=== PATIENT | female | born 1950 | race Caucasian/White ===

== ENCOUNTER 2020-05-01 13:59 | Outpatient (CLI) | payer MEDICARE, SELFPAY ==
--- NOTE | ~2020-05-01 | CT_ITS ---
EXAMINATION:CT lung screening DATE: 05/01/2020 14:24 INDICATION: Personal history of tobacco dependence. Current smoker with 35 pack year history. TECHNIQUE: Computed tomography (CT) of the chest was performed without intravenous contrast. Automate d exposure control and iterative reconstruction technique were employed. The dose-length product (DLP ) was 68.99 mGy-cm. COMPARISON: Chest CT 05/29/2018, 04/20/2012 FINDINGS: There is mild emphysema. There is mild atelectasis bilaterally. There are chronic airspace opacities in posterobasal segment left lower lobe with volume loss. There are also chronic tree-in-bu d opacities in this lung segment. These findings are consistent with scarring and chronic infection. There are scattered nodules in the lungs measuring up to 3 mm. A calcified left lung nodule and calci fied left hilar and mediastinal lymph nodes are consistent with old granulomatous disease. No pleural effusion. There is a 1.5 cm nodule in right thyroid lobe, stable from 04/20/2012, likely not clinica lly significant. The heart size is normal. There are coronary artery calcifications. No pericardial e ffusion. Calcifications in the spleen are consistent with old granulomatous disease. There is dextros coliosis and severe spondylosis of thoracolumbar spine. IMPRESSION: 1. Lung-RADS category 2: Benign appearance or behavior. Continue annual screening with noncontrast lo w-dose chest CT in 12 months. Reviewed, dictated and finalized at location A. MACIST INTERN IMPRESSION: 1. Lung-RADS category 2: Benign appearance or behavior. Continue annual screeni ng with noncontrast low-dose chest CT in 12 months.
== END 2020-05-01 14:00 | disposition home or self-care (01) ==
LOC: ANHIMG 14:01
PROVIDERS: PCP Internal Medicine; Visit Provider Nurse Practitioner Family
DX: Z12.2 Encounter for screening for malignant neoplasm of respiratory organs (principal); Z87.891 Personal history of nicotine dependence
CPT/HCPCS: G0297

== ENCOUNTER 2020-05-11 08:47 | Outpatient (CLI) | payer MEDICARE, SELFPAY ==
[2020-05-11 09:17] LABS: Basophils Percent Auto 0.7 % (0.2-1.2); Eosinophils Absolute Auto 0.2 K/mm3 (0-0.3); Hematocrit 38.6 % (37.0-47.0); Hemoglobin 12.7 g/dL (12.0-15.0); Immature Granulocyte Absolute 0.01 K/mm3 (0.00-0.031); Immature Granulocyte Percent A 0.2 % (0-0.5); Lymphocytes Absolute Auto 1.89 K/mm3 (0.9-3.2); Lymphocytes Percent Auto 34.5 % (18.3-44.2); Mean Corpuscular HGB Conc 32.9 g/dl (32-36); Mean Corpuscular Hemoglobin 30.4 pg (26-34); Mean Corpuscular Volume 92.3 fl (80-100); Mean Platelet Volume 10.2 fl (7.4-10.4); Monocytes Absolute Auto 0.6 K/mm3 (0.1-0.6); Monocytes Percent Auto 10.4 % (2.6-8.5); Neutrophils Absolute Auto 2.8 K/mm3 (1.3-6.7); Neutrophils Percent Auto 50.2 % (45.5-73.1); Platelet Count Result 272 k/mm3 (150-375); Red Blood Count 4.18 M/mm3 (4.2-5.4); Red Cell Distribution Width 13.1 % (11.5-14.5); White Blood Count 5.5 K/mm3 (4.5-10.0)
[2020-05-11 09:28] LABS: Anion Gap 3 mmol/L (8-16); Blood Urea Nitrogen 12 mg/dL (7-17); Carbon Dioxide 31 mmol/L (22-30); Chloride 106 mmol/L (98-107); Estimated Glomerular Filt Rate > 60; Glucose 102 mg/dL (65-105); Sodium 140 mmol/L (137-145)
[2020-05-11 09:59] LABS: Thyroid Stimulating Hormone 0.478 uIU/mL (0.465-4.680)
== END 2020-05-11 08:48 | disposition home or self-care (01) ==
PROVIDERS: PCP Internal Medicine; Visit Provider Internal Medicine
DX: Z01.810 Encounter for preprocedural cardiovascular examination (principal); J30.2 Other seasonal allergic rhinitis; R68.89 Other general symptoms and signs
CPT/HCPCS: 36415; 80048; 84443; 85025

== ENCOUNTER 2020-11-07 09:53 | Outpatient (CLI) | payer MEDICARE, SELFPAY ==
[2020-11-07 10:34] LABS: Alanine Aminotransferase 19 U/L (4-35); Albumin Level 4.1 g/dL (3.5-5.1); Alkaline Phosphatase 103 U/L (38-126); Aspartate Amino Transferase 30 U/L (14-36); Bilirubin,Total 0.2 mg/dL (0.2-1.3); Cholesterol 176 mg/dL (0-200); HDL Direct 70 mg/dL; Triglycerides 69 mg/dL (<150)
[2020-11-07 10:45] LABS: LDL Cholesterol Direct 80 mg/dL
== END 2020-11-07 09:54 | disposition home or self-care (01) ==
PROVIDERS: PCP Internal Medicine; Visit Provider Internal Medicine
DX: E78.5 Hyperlipidemia, unspecified (principal); Z79.899 Other long term (current) drug therapy
CPT/HCPCS: 36415; 80061; 80076

== ENCOUNTER 2020-11-29 21:01 | Emergency (ER) | payer MEDICARE, SELFPAY ==
--- NOTE | ~2020-11-29 | XR_ITS ---
XR finger 2nd RT min 2V DATE: 11/29/2020 21:29 INDICATION: Pain and swelling of metacarpophalangeal joint. No injury. TECHNIQUE: 3 views COMPARISON: None FINDINGS: There is prominent osteoarthritic change at the interphalangeal joints, most severe at the distal interphalangeal joint. 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 Prominent osteoarthritic change at the triscaphe and first carpometacarpal joints. No fracture or dislocation, periosteal reaction or bone destruction is evident. 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
[2020-11-29 21:15] VITALS: BP 134/51; PULSE 79; RESP 18; TEMP 36.8; O2SAT 98
--- NOTE | 2020-11-29 22:31 | ED.UPPEXIN ---
HPI - Extremity Injury (Upper) General Chief Complaint: Extremity Injury, Upper Stated Complaint: hand pain Time Seen by Provider: 11/29/20 22:03 Source: patient and RN notes reviewed Mode of arrival: ambulatory Limitations: no limitations History of Present Illness HPI narrative: This is a 70 year old female right hand dominant who presents for evaluation right hand pain. She noticed this morning she had pain at swelling to her right index finger. She has some pain with movement. She took 2 ibuprofen a few hours ago. She denies any injury. She reports history of osteoarthritis to her hands but she has never been diagnosed with gout. She denies fever or chills. Related Data Home Medications Medication Instructions Recorded Confirmed multivitamin 1 tablet PO DAILY 06/16/19 11/09/20 omega 1-lct-dfp-fish oil 500 mg 1 cap PO DAILY 06/16/19 11/09/20 (200mg-300mg)-1,000 mg capsule Allergies Allergy/AdvReac Type Severity Reaction Status Date / Time erythromycin base Allergy Severe Hives / Verified 05/08/20 09:45 Red Face tramadol Allergy Severe Hives Verified 11/09/20 10:02 tetracycline Allergy Intermediate Hives Verified 11/09/20 10:02 latex Allergy Mild rash Verified 11/09/20 10:02 Review of Systems Review of Systems: All systems reviewed & are unremarkable except as noted in HPI and below Constitutional: Constitutional: Denies chills and Denies fever(s) Neurologic: Denies focal weakness, Denies numbness and Denies weakness PMFSH Past Medical History Medical History Moderate asthma without complication Family History Family History Mother Family history of osteoporosis Depression Family history of migraine headaches Family history of osteoarthritis Cerebrovascular accident Family history of cardiac disorder Patient's mother is Sibling Family history of osteoporosis Family history of dementia Depression Family history of migraine headaches Family history of osteoarthritis Family history of heart disease in male family member before age 55, Onset Age: 34 Patient's brother is Family history of cardiovascular disease Acute myocardial infarction Family history of Parkinson's disease Father Acute myocardial infarction Other Family history of multiple sclerosis Social History Social History Smoking packs per day: 1 Smoking cigarettes per day: 20.0 Years smoked: 30 Smoking pack-years: 30.00 Smoking status: Former smoker Smoking end date: 06/30/04 Alcohol intake: current Gender identity (if verbalized by the patient): Female Exam Const: General: no acute distress and alert Orientation/consciousness: patient oriented x3 Eyes: EOM: EOMs intact bilaterally Resp: Effort & Inspection: normal respiratory effort Cardio: Other: bilateral radial pulses Neuro: General: patient oriented x3 and moves all extremities Extrem: Other: right hand with swelling at 2nd MCP joint, mild decrease flexion at MCP and PIP joint, no joint erythema Psych: Mental Status: mental status grossly normal Affect: normal affect Course Reevaluation(s) Reevaluation #1: I have discussed with patient that her symptoms are likely due to psuedogout. I discussed discharge plan and treatment. Date: 11/29/20 Time: 23:52 Vital Signs Vital signs: Vital Signs Temperature 98.3 F 11/29/20 21:15 Pulse Rate 79 11/29/20 21:15 Respiratory Rate 18 11/29/20 21:15 Blood Pressure 134/51 L 11/29/20 21:15 Pulse Oximetry 98 11/29/20 21:15 Temperature 98.3 F 11/29/20 21:15 Pulse Rate 66 11/30/20 00:07 Respiratory Rate 18 11/30/20 00:07 Blood Pressure 131/60 11/30/20 00:07 Pulse Oximetry 98 11/30/20 00:07 MDM - Extremity Injury (Upper) Imaging Data Radiolog
[2020-11-29] MEDS: INDOMETHACIN 25 MG CAPSULE 50 MG PO (23:06)
[2020-11-29] MEDS: COLCHICINE 0.6 MG TABLET PO (23:06)
[2020-11-29 23:45] VITALS: BP 124/67; PULSE 66; RESP 18; O2SAT 96
[2020-11-30 00:07] VITALS: BP 131/60; PULSE 66; RESP 18; O2SAT 98
== END 2020-11-30 00:06 | disposition home or self-care (01) ==
PROVIDERS: Emergency Provider General Practice; PCP Internal Medicine
DX: M11.241 Other chondrocalcinosis, right hand (principal); J45.909 Unspecified asthma, uncomplicated; M19.041 Primary osteoarthritis, right hand; Z87.891 Personal history of nicotine dependence
CPT/HCPCS: 73140; 99283; A9270

== ENCOUNTER → 2021-05-01 03:33 | Outpatient (CLI) | payer MEDICARE, SELFPAY ==
[2021-05-01 18:29] LABS: SARS-CoV-2 RNA PCR Negative
== END ==
PROVIDERS: PCP Internal Medicine; Visit Provider Nurse Practitioner
DX: R68.89 Other general symptoms and signs (principal); Z20.822 Contact with and (suspected) exposure to COVID-19
CPT/HCPCS: C9803; U0003; U0005

== ENCOUNTER 2021-05-12 07:15 | Outpatient (CLI) | payer MEDICARE, SELFPAY ==
[2021-05-12 08:38] LABS: Alanine Aminotransferase 24 U/L (4-35); Albumin Level 3.9 g/dL (3.5-5.1); Alkaline Phosphatase 105 U/L (38-126); Anion Gap 5 mmol/L (8-16); Aspartate Amino Transferase 31 U/L (14-36); Bilirubin,Total 0.3 mg/dL (0.2-1.3); Blood Urea Nitrogen 13 mg/dL (7-17); Calcium 9.1 mg/dL (8.4-10.2); Carbon Dioxide 30 mmol/L (22-30); Chloride 105 mmol/L (98-107); Cholesterol 152 mg/dL (0-200); Estimated Glomerular Filt Rate > 60; Glucose 103 mg/dL (65-110); HDL Direct 73 mg/dL; Potassium 4.5 mmol/L (3.4-5.0); Sodium 140 mmol/L (137-145); Triglycerides 51 mg/dL (<150)
[2021-05-12 08:48] LABS: LDL Cholesterol Direct 60 mg/dL
== END 2021-05-12 07:16 | disposition home or self-care (01) ==
PROVIDERS: PCP Internal Medicine; Referring Provider Internal Medicine; Visit Provider Nurse Practitioner
DX: E78.5 Hyperlipidemia, unspecified (principal)
CPT/HCPCS: 36415; 80053; 80061

== ENCOUNTER 2021-10-06 16:01 | Inpatient (IN) | payer MEDICARE, SELFPAY ==
[2021-10-06] VITALS (11 sets, daily range): BP systolic 134–150; BP diastolic 58–59; PULSE 76–97; RESP 12–23; TEMP 36.8–37.4; O2SAT 95–98; BMI 24.2
--- NOTE | ~2021-10-06 | XR_ITS ---
EXAMINATION: XR chest 1V portable Exam Date/Time: 10/06/2021 16:10 CDT CLINICAL HISTORY: SOB, COUGH, COPD, ASTHMA Comparison: None available RESULT: Lines, tubes, and devices: None. Lungs and pleura: Stable retrocardiac mass (previously determined to likely represent chronic infect ion), otherwise clear. Cardiomediastinal silhouette: Stable cardiomediastinal silhouette. Other: No acute osseous or upper abdominal finding. IMPRESSION: No acute cardiopulmonary process. Reviewed, dictated and finalized at location K.
--- NOTE | ~2021-10-06 | CT_ITS ---
EXAMINATION: CTA chest PE protocol DATE: 10/06/2021 17:25 INDICATION: Pulmonary embolism TECHNIQUE: Computed tomography angiography (CTA) of the chest was performed with 100 mL Omnipaque-350 intravenous contrast timed to evaluate the pulmonary arteries. Coronal maximum intensity projection 3D-reconstructions were created by the technologist. The dose-length product (DLP) was 193.26 mGy-cm. Automated exposure control and iterative reconstruction technique were employed. COMPARISON: CT lung screening 05/01/2020. FINDINGS: Study quality: Adequate. Pulmonary arteries: No pulmonary emboli detected. Thoracic aorta: Atherosclerotic calcifications. Lung parenchyma and airways: Bibasilar scar/atelectasis. Stable focus of volume loss and consolidatio n in the left lung base, previously reported as chronic infection. Thoracic inlet, axillae and chest wall: 2.2 cm right thyroid nodule. Mediastinum: Granulomatous calcifications. Heart and pericardium: Normal. Coronary artery calcifications: Mild. Pleura: Unremarkable. Upper abdomen: No significant finding. Bones: No acute osseous finding. IMPRESSION: No CT evidence of pulmonary embolism. 2.2 cm right thyroid nodule, recommend nonemergent, outpatient thyroid ultrasound for further characterization. Reviewed, dictated and finalized at location K. IMPRESSION: No CT evidence of pulmonary embolism. 2.2 cm right thyroid nodule, recommend no nemergent, outpatient thyroid ultrasound for further characterization.
--- NOTE | 2021-10-06 16:06 | ECG_ITS ---
Measurements Intervals [place] Rate: 83 P: 67 TX: 177 QRS: -13 QRSD: 88 T: 62 QT: 360 QTc: 424 Interpretive Statements SINUS RHYTHM COMPARED TO ECG 04/02/2019 09:29:54 NO SIGNIFICANT CHANGES Electronically Signed On 10-07-2021 6:58:05 CDT by Renee Campos M.D.
--- NOTE | 2021-10-06 16:11 | ED.SOB ---
HPI - SOB/Dyspnea General Chief Complaint: Shortness of Breath/Dyspnea Stated Complaint: dyspnea Time Seen by Provider: 10/06/21 16:02 Source: RN notes reviewed History of Present Illness HPI Narrative: Patient presents emergency department from home for shortness of breath. Patient states that she has been short of breath for the past 1 week with a cough states that she does have a history of COPD and is followed by Dr. Lozoya for pulmonary states has been on prednisone for the past 1 week as well as started on Z-Arjun states she has had a cough this been nonproductive she denies any fevers or chills, chest pain abdominal pain nausea vomiting or any other symptoms Related Data Home Medications Medication Instructions Recorded Confirmed multivitamin 1 tablet PO DAILY 06/16/19 05/14/21 omega 4-rgn-efl-fish oil 500 mg 1 cap PO DAILY 06/16/19 05/14/21 (200mg-300mg)-1,000 mg capsule Allergies Allergy/AdvReac Type Severity Reaction Status Date / Time erythromycin base Allergy Severe Hives / Verified 10/06/21 16:10 Red Face tramadol Allergy Severe Hives Verified 10/06/21 16:10 tetracycline Allergy Intermediate Hives Verified 10/06/21 16:10 latex Allergy Mild rash Verified 10/06/21 16:10 Review of Systems Review of Systems: Gen.: Denies fevers or chills ENT: Denies congestion Respiratory: See HPI CV: Denies chest pain or palpitations GI: Denies abdominal pain nausea, emesis or diarrhea Musculoskeletal: Denies back pain or muscle pain Neuro: Denies numbness, tingling, weakness or focal weakness Skin: Denies rash Except as documented, all other systems reviewed and negative [facility] Past Medical History Medical History Arthritis Asthma Chronic obstructive pulmonary disease Erosive osteoarthritis of hands, bilateral H/O: gout Moderate asthma without complication Surgical History Surgical History Delivery by section H/O foot surgery History of carpal tunnel release History of parathyroid surgery Family History Family History Mother Family history of osteoporosis Depression Family history of migraine headaches Family history of osteoarthritis Cerebrovascular accident Family history of cardiac disorder Patient's mother is Sibling Family history of osteoporosis Family history of dementia Depression Family history of migraine headaches Family history of osteoarthritis Family history of heart disease in male family member before age 55, Onset Age: 34 Patient's brother is Family history of cardiovascular disease Acute myocardial infarction Family history of Parkinson's disease Father Acute myocardial infarction Other Family history of multiple sclerosis Social History Social History Smoking packs per day: 0.10 Smoking cigarettes per day: 2.0 Years smoked: 30 Smoking pack-years: 3.00 Smoking status: Current some day smoker Tobacco type: cigarettes Second hand tobacco smoke exposure: Yes Alcohol intake: current Alcohol use details: social Substance use: never Gender identity (if verbalized by the patient): Female Exam Narrative: APPEARANCE: Mild respiratory distress, nontoxic, resting in bed EYES: EOMI HEENT: Normocephalic, atraumatic, OMM RESPIRATORY: Mild respiratory distress wheezing throughout the bilateral lung gauthier with coarse breath sounds in the bases CARDIOVASCULAR: Regular rate and rhythm without murmurs rubs or gallops. ABDOMINAL: Soft, nontender, nondistended, no rebound or guarding MUSCULOSKELETAl: Moves all extremities. No clubbing, cyanosis or edema. NEURO: Awake and alert. Following commands, speech normal, no focal deficits SKIN:: Warm, dry. No rashes lesions or abrasions PSYCHIATRIC: Norm
[2021-10-06 16:18] LABS: Basophils Percent Auto 0.2 % (0.2-1.2); Hematocrit 41.9 % (37.0-47.0); Hemoglobin 13.7 g/dL (12.0-15.0); Immature Granulocyte Absolute 0.04 K/mm3 (0.00-0.031); Immature Granulocyte Percent A 0.3 % (0-0.5); Lymphocytes Absolute Auto 0.93 K/mm3 (0.9-3.2); Lymphocytes Percent Auto 7.6 % (18.3-44.2); Mean Corpuscular HGB Conc 32.7 g/dl (32-36); Mean Corpuscular Hemoglobin 30.8 pg (26-34); Mean Corpuscular Volume 94.2 fl (80-100); Mean Platelet Volume 9.6 fl (7.4-10.4); Monocytes Absolute Auto 0.9 K/mm3 (0.1-0.6); Monocytes Percent Auto 7.5 % (2.6-8.5); Neutrophils Absolute Auto 10.3 K/mm3 (1.3-6.7); Neutrophils Percent Auto 84.4 % (45.5-73.1); Platelet Count Result 364 k/mm3 (150-375); Red Blood Count 4.45 M/mm3 (4.2-5.4); Red Cell Distribution Width 13.2 % (11.5-14.5); White Blood Count 12.2 K/mm3 (4.5-10.0)
[2021-10-06] MEDS: ALBUTEROL SULFATE NEB 2.5 MG/0.5 ML INH 5 MG INHALATION ×3 (16:19→20:06)
[2021-10-06] MEDS: IPRATROPIUM BR 0.02% INH SOLN 0.5 MG/2.5 ML VIAL INHALATION ×3 (16:20→20:06)
[2021-10-06] MEDS: methylPREDNISolone SOD SUCC 125 MG VIAL IV PUSH (16:27)
[2021-10-06 16:28] LABS: Alanine Aminotransferase 32 U/L (4-35); Alkaline Phosphatase 89 U/L (38-126); Anion Gap 8 mmol/L (8-16); Aspartate Amino Transferase 33 U/L (14-36); Bilirubin,Total 0.2 mg/dL (0.2-1.3); Blood Urea Nitrogen 28 mg/dL (7-17); Calcium 8.4 mg/dL (8.4-10.2); Carbon Dioxide 22 mmol/L (22-30); Chloride 107 mmol/L (98-107); Estimated CRCL calculation 60 ml/min; Estimated Glomerular Filt Rate > 60; Glucose 151 mg/dL (65-110); Lactic Acid Reflex 3.7 mmol/L (0.7-2.1); Potassium 4.1 mmol/L (3.4-5.0); Sodium 137 mmol/L (137-145)
[2021-10-06 16:31] LABS: INR 0.9; Partial Thromboplastin Time 25.2 SECONDS (22.3-36.8); Prothrombin Time 12.2 Seconds (11.1-14.7)
[2021-10-06 16:46] LABS: NT Pro B Type Natriuretic Pept 117 pg/mL (5-100); Troponin I < 0.012 ng/mL (0.000-0.034)
[2021-10-06 16:53] LABS: SARS-CoV-2 RNA PCR Negative
--- NOTE | 2021-10-06 19:00 | ADMGEN ---
This patient, Isaura Castillo, was admitted to Medical Room 349-01. Patient/family oriented to hospital policies and general routines including ID bracelet, bed and alarms, visiting hours, pain management, procedures, bathroom and other care routines, personal items, smoking policy, room service/diet, and visiting hours. Information on how to activate the Rapid Response Team has been discussed. Patient/Family are encouraged to report perceived risks to care and to ask questions if they do not understand what they are told or what they should do.
--- NOTE | 2021-10-06 19:12 | PM.IMHP ---
H&P: HPI History of Present Illness Date/Time: Patient was placed observation status for expected length of stay less than 23 hours for management, will plan to re-evaluate tomorrow for improvement. 10/06/21 19:12 Chief Complaint: Cough and shortness of breath Narrative: Ms. Castillo is a 70-year-old female who presented to the emergency room with complaints of cough and shortness of breath x1 week. Patient states that approximately 2 weeks ago her spouse was sick and he receiving antibiotic. Patient states 1 week ago on Friday she started having wheezing and then coughing. Patient states that her [id number] had a leftover Z-Arjun and prednisone and the patient began taking these medications last Friday. Patient states that the prednisone was a 40 mg tablet and she cut in quarters and was taking 10 mg daily. Patient states on Friday her manager assurance's office had called her because she had left a message with them and they are going to call in Augmentin, but patient then told them that she had taken a Z-Arjun and was taking 10 mg of prednisone daily. The office then told the patient to continue with the 10 mg daily and they would continue to check on her. Patient states on Friday she was still extremely tight and wheezing and had a cough typically at night. Patient states on her manager assurance's office called and patient complained of cough and shortness of breath and a prescription for prednisone 40 mg daily was called in for her. Patient states she started that on and then today she decided come to the emergency room for further evaluation because she has been coughing at night and this has been keeping her awake and she is wheezing and her albuterol inhaler and the prednisone have not helped with this at all. Upon evaluation in emergency room patient was noted to have wheezing, but was never hypoxic on room air. Patient received a nebulizer treatment of DuoNeb and 125 mg of IV Solu-Medrol. Patient denies any chest pain, lightheadedness, dizziness, syncopal, or near syncopal episodes. Patient states she has been taking all home medications without any difficulty. Patient states she does have a known history of asthma and dyslipidemia. Patient states she does have a history of smoking approximately half a pack of cigarettes a day for 50 years. Review of Systems Review of Systems: A 12 point review of systems was completed patient all pertinent positive and negative per HPI the remainder are unremarkable. [facility] Past Medical History Medical History Arthritis Asthma Chronic obstructive pulmonary disease Erosive osteoarthritis of hands, bilateral H/O: gout Moderate asthma without complication Surgical History Surgical History Delivery by section H/O foot surgery History of carpal tunnel release History of parathyroid surgery Family History Family History Mother Family history of osteoporosis Depression Family history of migraine headaches Family history of osteoarthritis Cerebrovascular accident Family history of cardiac disorder Patient's mother is Sibling Family history of osteoporosis Family history of dementia Depression Family history of migraine headaches Family history of osteoarthritis Family history of heart disease in male family member before age 55, Onset Age: 34 Patient's brother is Family history of cardiovascular disease Acute myocardial infarction Family history of Parkinson's disease Father Acute myocardial infarction Other Family history of multiple sclerosis Social History Social History Smoking packs per day: 0.10 Smoking cigarettes per day: 2.0 Years smoked: 30 Smoking pack-years: 3.00 Smoking status: Janelle
[2021-10-06 19:16] LABS: Reflex Lactic Acid Yes or No Add Lactic
[2021-10-06 19:50] LABS: Lactic Acid 2.9 mmol/L (0.7-2.1)
[2021-10-06] MEDS: methylPREDNISolone SOD SUCC 125 MG VIAL 60 MG IV PUSH (20:29)
[2021-10-07] VITALS (12 sets, daily range): BP systolic 120–129; BP diastolic 43–59; PULSE 71–88; RESP 17–18; TEMP 36.8–36.9; O2SAT 94–97
[2021-10-07] MEDS: ALBUTEROL SULFATE NEB 2.5 MG/0.5 ML INH 5 MG INHALATION ×4 (01:10→21:33)
[2021-10-07] MEDS: IPRATROPIUM BR 0.02% INH SOLN 0.5 MG/2.5 ML VIAL INHALATION ×4 (01:10→21:33)
[2021-10-07 05:28] LABS: Basophils Percent Auto 0.1 % (0.2-1.2); Hematocrit 41.4 % (37.0-47.0); Hemoglobin 13.3 g/dL (12.0-15.0); Immature Granulocyte Absolute 0.07 K/mm3 (0.00-0.031); Immature Granulocyte Percent A 0.6 % (0-0.5); Lymphocytes Absolute Auto 0.76 K/mm3 (0.9-3.2); Lymphocytes Percent Auto 6.9 % (18.3-44.2); Mean Corpuscular HGB Conc 32.1 g/dl (32-36); Mean Corpuscular Hemoglobin 30.4 pg (26-34); Mean Corpuscular Volume 94.7 fl (80-100); Mean Platelet Volume 9.7 fl (7.4-10.4); Monocytes Absolute Auto 0.6 K/mm3 (0.1-0.6); Neutrophils Absolute Auto 9.7 K/mm3 (1.3-6.7); Neutrophils Percent Auto 87.4 % (45.5-73.1); Platelet Count Result 316 k/mm3 (150-375); Red Blood Count 4.37 M/mm3 (4.2-5.4); Red Cell Distribution Width 13.1 % (11.5-14.5); White Blood Count 11.1 K/mm3 (4.5-10.0)
[2021-10-07 05:40] LABS: Anion Gap 7 mmol/L (8-16); Blood Urea Nitrogen 13 mg/dL (7-17); Calcium 8.7 mg/dL (8.4-10.2); Carbon Dioxide 26 mmol/L (22-30); Chloride 106 mmol/L (98-107); Estimated CRCL calculation 71 ml/min; Estimated Glomerular Filt Rate > 60; Glucose 121 mg/dL (65-110); Potassium 3.7 mmol/L (3.4-5.0); Sodium 139 mmol/L (137-145)
[2021-10-07] MEDS: methylPREDNISolone SOD SUCC 125 MG VIAL 60 MG IV PUSH ×3 (06:29→21:22)
[2021-10-07] MEDS: FLUTICASONE/SALMETEROL 115-21 MCG INHALER 1 PUFF 2 PUFF INHALATION ×2 (07:44→21:42)
--- NOTE | 2021-10-07 07:55 | PM.IMPN ---
Progress Note: A&P Assessment and Plan (1) COPD exacerbation: Code(s): J44.1 - Chronic obstructive pulmonary disease with (acute) exacerbation Status: Acute Assessment and Plan: - DuoNeb treatments every 6 hours - IV Solu-Medrol every 6 hours. - Continue to Monitor oxygen saturations. Currently stable on room air. - white blood cell count decreasing. Likely due to previous dose of steroids prior to coming to emergency room. - As patient is already completed and Z-Arjun as an outpatient will defer any further antibiotics at this time. - Monitor labs and vitals and continue current medication regimen. (2) Tobacco abuse: Code(s): Z72.0 - Tobacco use Status: Acute Assessment and Plan: - Pt. continues to smoke despite multiple bouts of COPD exacerbations. - patient smokes 2 cigarettes daily for the past 3 years. - Nicotine patch offered for control while here. Time Spent With Patient Time with patient: 15 - 25 minutes Subjective Date/time seen: 10/07/21 07:55 This pt. was examined at the bedside after being admitted to the hospital for an acute COPD exacerbation. She continues to feel dyspneic at times, but overall feels that she is starting to feel better. Prior to coming into the hospital, she had taken several days worth of her daughters left over prescription of Prednisone and Azithromycin. She has no new complaints other than continued cough and dyspnea. She has no current CP, N/V/D, Headache, lightheadedness, or near syncope, and states overall she is starting to feel better pain she admits she is not back to her baseline and is agreeable to stay another night. Review of Systems Review of Systems: All systems reviewed & are unremarkable except as noted in HPI and below Exam Narrative: Constitutional: Patient is well-nourished in no acute distress. Patient is alert and oriented x3 HEENT: Moist mucous membranes. No scleral icterus. No lymphadenopathy. Neck: No carotid bruits noted no JVD noted Lungs: Patient's lungs are decreased auscultation bilaterally with inspiratory and expiratory wheezes noted. Patient does have a dry cough noted with inspiration. Cardiovascular: Apical pulse is regular rate and rhythm. S1-S2 noted, no S3 or S4 noted. No gallops, murmurs, or rubs noted. Abdomen: Soft, round, and nontender. No palpable masses. Extremities: No edema. Nontender. Skin: No rashes or lesions. Warm and dry. Skin is intact. Neurological: No focal neurological deficits. Cranial nerves II-XII grossly intact. Psychiatric: Cooperative, appropriate mood, and affect Objective Data Vital Signs Vital Signs: Vital Signs - 24 hr 10/06/21 16:07 10/06/21 16:10 10/06/21 16:21 Temperature 99.3 F Pulse Rate 92 97 80 Respiratory Rate 21 H 23 H 13 Blood Pressure 150/59 H Pulse Oximetry 95 10/06/21 16:47 10/06/21 17:45 10/06/21 18:00 Temperature Pulse Rate 84 76 Respiratory Rate 14 12 Blood Pressure Pulse Oximetry 95 10/06/21 18:21 10/06/21 19:33 10/06/21 20:08 Temperature 98.2 F Pulse Rate 87 89 84 Respiratory Rate 22 H 18 18 Blood Pressure 142/59 H 134/58 L Pulse Oximetry 98 98 10/06/21 20:16 10/06/21 20:18 10/07/21 01:08 Temperature Pulse Rate 88 81 Respiratory Rate 18 18 Blood Pressure Pulse Oximetry 96 10/07/21 01:18 10/07/21 06:14 10/07/21 07:36 Temperature 98.3 F Pulse Rate 86 71 87 Respiratory Rate 18 18 18 Blood Pressure 129/59 L Pulse Oximetry 97 10/07/21 07:43 Temperature Pulse Rate 88 Respiratory Rate 18 Blood Pressure Pulse Oximetry Intake/Output Intake/Output: Intake & Output 10/04/21 10/05/21 10/06/21 10/07/21 23:59 23:59 23:59 23:59 Intake Total 2550 Output Total 4 Balance 2546 Meds/Results Medications: Active Medications Generic Name Dose Route Start Last Admin Trade Name Freq PRN Reason Stop Dose Admin Albuterol 5 mg 10/06/21 20:00 10/07/21 07:36 Albut
[2021-10-07] MEDS: NYSTATIN 100,000 UNITS/ML SUSP 5 ML ORAL.SUSP PO ×3 (08:57→21:22)
[2021-10-07] MEDS: MULTIVITAMINS THERAPEUTIC TAB (*BKC) 1 TABLET PO (08:57)
[2021-10-07] MEDS: ATORVASTATIN 10 MG TABLET PO (08:57)
[2021-10-07] MEDS: ENOXAPARIN 40 MG/0.4 ML SYRINGE SUB-Q (08:58)
[2021-10-07] MEDS: OMEGA 3 POLYUNSAT FATTY ACIDS 1 GM CAP PO (10:43)
[2021-10-07] MEDS: traZODone HCL 50 MG TABLET PO (21:22)
[2021-10-08 02:18] VITALS: PULSE 79; RESP 18
[2021-10-08] MEDS: ALBUTEROL SULFATE NEB 2.5 MG/0.5 ML INH 5 MG INHALATION ×2 (02:22→08:51)
[2021-10-08] MEDS: IPRATROPIUM BR 0.02% INH SOLN 0.5 MG/2.5 ML VIAL INHALATION ×2 (02:22→08:51)
[2021-10-08 02:27] VITALS: PULSE 82; RESP 18
[2021-10-08 05:23] LABS: Basophils Percent Auto 0.1 % (0.2-1.2); Hemoglobin 12.6 g/dL (12.0-15.0); Immature Granulocyte Absolute 0.11 K/mm3 (0.00-0.031); Immature Granulocyte Percent A 0.7 % (0-0.5); Lymphocytes Absolute Auto 0.65 K/mm3 (0.9-3.2); Lymphocytes Percent Auto 4.2 % (18.3-44.2); Mean Corpuscular HGB Conc 33.2 g/dl (32-36); Mean Corpuscular Hemoglobin 30.7 pg (26-34); Mean Corpuscular Volume 92.7 fl (80-100); Monocytes Absolute Auto 0.7 K/mm3 (0.1-0.6); Monocytes Percent Auto 4.7 % (2.6-8.5); Neutrophils Absolute Auto 13.9 K/mm3 (1.3-6.7); Neutrophils Percent Auto 90.3 % (45.5-73.1); Platelet Count Result 311 k/mm3 (150-375); Red Cell Distribution Width 13.2 % (11.5-14.5); White Blood Count 15.4 K/mm3 (4.5-10.0)
[2021-10-08 05:34] LABS: Alanine Aminotransferase 26 U/L (4-35); Albumin Level 3.3 g/dL (3.5-5.1); Alkaline Phosphatase 68 U/L (38-126); Anion Gap 4 mmol/L (8-16); Aspartate Amino Transferase 23 U/L (14-36); Bilirubin,Total 0.1 mg/dL (0.2-1.3); Blood Urea Nitrogen 19 mg/dL (7-17); Calcium 8.3 mg/dL (8.4-10.2); Carbon Dioxide 24 mmol/L (22-30); Chloride 107 mmol/L (98-107); Estimated CRCL calculation 71 ml/min; Estimated Glomerular Filt Rate > 60; Glucose 133 mg/dL (65-110); Magnesium 2.2 mg/dL (1.6-2.3); Sodium 135 mmol/L (137-145)
[2021-10-08] MEDS: methylPREDNISolone SOD SUCC 125 MG VIAL 60 MG IV PUSH (06:22)
[2021-10-08 06:28] VITALS: BP 122/60; PULSE 77; RESP 18; TEMP 36.7; O2SAT 96
[2021-10-08] MEDS: OMEGA 3 POLYUNSAT FATTY ACIDS 1 GM CAP PO (08:44)
[2021-10-08] MEDS: ATORVASTATIN 10 MG TABLET PO (08:44)
[2021-10-08] MEDS: NYSTATIN 100,000 UNITS/ML SUSP 5 ML ORAL.SUSP PO (08:44)
[2021-10-08] MEDS: ENOXAPARIN 40 MG/0.4 ML SYRINGE SUB-Q (08:44)
[2021-10-08] MEDS: MULTIVITAMINS THERAPEUTIC TAB (*BKC) 1 TABLET PO (08:44)
[2021-10-08] MEDS: levoFLOXacin 500 MG TABLET PO (08:44)
[2021-10-08 08:50] VITALS: PULSE 80; RESP 18
[2021-10-08] MEDS: FLUTICASONE/SALMETEROL 115-21 MCG INHALER 1 PUFF 2 PUFF INHALATION (08:51)
[2021-10-08 08:55] VITALS: O2SAT 96
[2021-10-08 08:58] VITALS: PULSE 81; RESP 18
--- NOTE | 2021-10-08 10:22 | PM.DS ---
DS: Admitting Diagnosis Discharge Date 10/08/2021 Admitting Diagnosis COPD exacerbation Thrush Tobacco dependence 2.2 cm right thyroid nodule, recommend nonemergent, outpatient thyroid ultrasound for further characterization. DS: Discharge Diagnosis Discharge Diagnosis (1) COPD exacerbation: Code(s): J44.1 - Chronic obstructive pulmonary disease with (acute) exacerbation Status: Acute Assessment and Plan: - DuoNeb treatments every 6 hours - IV Solu-Medrol every 6 hours. - Continue to Monitor oxygen saturations. Currently stable on room air. - white blood cell count decreasing. Likely due to previous dose of steroids prior to coming to emergency room. - As patient is already completed and Z-Arjun as an outpatient will defer any further antibiotics at this time. - Monitor labs and vitals and continue current medication regimen. (2) Tobacco abuse: Code(s): Z72.0 - Tobacco use Status: Acute Assessment and Plan: - Pt. continues to smoke despite multiple bouts of COPD exacerbations. - patient smokes 2 cigarettes daily for the past 3 years. - Nicotine patch offered for control while here. DS: Summary Hospital Course Reason for hospitalization: COPD exacerbation Hospital Course: Ms. Castillo is a 70-year-old female with a known history of asthma and dyslipidemia. Patient states she does have a history of smoking approximately half a pack of cigarettes a day for 50 years. sHe presented to the emergency room with complaints of cough and shortness of breath x1 week. Patient states that approximately 2 weeks ago her spouse was sick and he receiving antibiotic. Patient states 1 week ago on Friday she started having wheezing and then coughing. Patient states that her [id number] had a leftover Z-Arjun and prednisone and the patient began taking these medications last Friday. Patient states that the prednisone was a 40 mg tablet and she cut in quarters and was taking 10 mg daily. Patient states on Friday her fine grader's office had called her because she had left a message with them and they are going to call in Augmentin, but patient then told them that she had taken a Z-Arjun and was taking 10 mg of prednisone daily. The office then told the patient to continue with the 10 mg daily and they would continue to check on her. Patient states on Friday she was still extremely tight and wheezing and had a cough typically at night. Patient states on her fine grader's office called and patient complained of cough and shortness of breath and a prescription for prednisone 40 mg daily was called in for her. Patient states she started that on and then today she decided come to the emergency room for further evaluation because she has been coughing at night and this has been keeping her awake and she is wheezing and her albuterol inhaler and the prednisone have not helped with this at all. Upon evaluation in emergency room patient was noted to have wheezing, but was never hypoxic on room air. Patient received a nebulizer treatment of DuoNeb and 125 mg of IV Solu-Medrol. Patient denies any chest pain, lightheadedness, dizziness, syncopal, or near syncopal episodes. Patient states she has been taking all home medications without any difficulty. years. During hospitalization the patient was placed on IV Solu-Medrol Q 6 hours, DuoNeb treatments and educated on COPD exacerbation and smoking history. Patient continued to have a leukocytosis during her hospitalization and thrush. She was administered 1 dose of fluconazole and started on antibiotics. Patient felt dyspneic intermittently however she did not require oxygen supplementation on the day of discharge. She will be discharged with continuation of steroids and antibiotics and follow-up with her fine grader within 1 week. Status at Discharge Cognitive/behavioral status at discharge: Alert and oriented Functional status at discharge: independent ambula
[2021-10-08] MEDS: FLUCONAZOLE 150 MG TABLET PO (11:12)
[2021-10-08] MEDS: predniSONE 20 MG TABLET 40 MG PO (11:12)
== END 2021-10-08 11:25 | disposition home or self-care (01) | DRG 192 ==
LOC: ANHED 18:28 → ANH3MED 18:34
PROVIDERS: Nurse Practitioner Adult Health; Admitting Provider Internal Medicine; Emergency Provider Emergency Medicine; PCP Internal Medicine; Visit Provider Nurse Practitioner Family
DX: J44.1 Chronic obstructive pulmonary disease with (acute) exacerbation (principal); E04.1 Nontoxic single thyroid nodule; Z20.822 Contact with and (suspected) exposure to COVID-19; J45.909 Unspecified asthma, uncomplicated; E78.5 Hyperlipidemia, unspecified; B37.9 Candidiasis, unspecified; D72.829 Elevated white blood cell count, unspecified; M15.4 Erosive (osteo)arthritis; F17.210 Nicotine dependence, cigarettes, uncomplicated
CPT/HCPCS: 36415; 71045; 71275; 80048; 80053; 83605; 83735; 83880; 84484; 85025; 85610; 85730; 93005; 94640; 96372; 96374; 96376; 99285; A9270; C9803; G0378; J1650; J2930; J7512; Q9967; U0003; U0005

== ENCOUNTER 2021-10-12 10:44 | Outpatient (CLI) | payer MEDICARE, SELFPAY ==
--- NOTE | ~2021-10-12 | US_ITS ---
EXAMINATION: US thyroid EXAM DATE: 10/12/2021 11:09 INDICATION: E04.1 - Nontoxic single thyroid nodule. TECHNIQUE: Multiple grayscale and Doppler images of the thyroid were obtained (by a technologist who performed the scan) and subsequently reviewed. Individual nodules and recommendations may be reporte d in accordance with TI-RADS system as designated by the 2017 ACR White Paper TI-RADS committee. The re is no prior thyroid study for comparison, but correlation made to multiple prior chest CTs. FINDINGS: There is diffusely heterogeneous thyroid echogenicity with scattered nodules. The right thyroid lobe measures 5.0 x 2.3 x 2.8 cm which is moderately enlarged, the left measuring 3.7 x 1.6 x 1.5 cm, with in normal size limits. Diffusely hypervascular thyroid parenchyma. Largest nodule is in the right thyroid lobe measuring 2.2 x 1.4 x 2.0 cm, solid (2 points), hypoecho ic (2 points), wider than tall, smooth well defined margin, without echogenic foci, category TR4 for this nodule. Correlation is made to prior chest CT reports from 2021, 2019, 2011. Nodule appears to h ave measured about 1.5 cm in 2011, may have demonstrated slow interval growth over 10 years which is most consistent with benign histology. However, no prior ultrasounds for direct comparison and this n odule is large enough to consider ultrasound-guided biopsy under current recommendations. The contiguous smaller right thyroid lobe nodule measuring up to 1.2 cm has echogenic foci along far sides of cystic components, typical appearance for colloid cyst. There is left thyroid lobe category TR 4 nodule measuring 1.1 x 0.9 x 1.1 cm, size indicates one-year follow-up. IMPRESSION: 1. Multinodular goiter. 2. Largest right thyroid lobe nodule could be considered for ultrasound-guided FNA. Reviewed, dictated and finalized at location B.
== END 2021-10-12 10:45 | disposition home or self-care (01) ==
PROVIDERS: PCP Internal Medicine; Visit Provider Internal Medicine
DX: E04.2 Nontoxic multinodular goiter (principal)
CPT/HCPCS: 76536

== ENCOUNTER 2021-10-17 09:00 | Outpatient (CLI) | payer MEDICARE, SELFPAY ==
--- NOTE | ~2021-10-17 | US_ITS ---
EXAMINATION: US FNA w image guidance DATE: 10/17/2021 09:50 INDICATION: Nontoxic multinodular goiter TECHNIQUE: A time-out was performed to verify the patient's name, date of , and procedure to be performed . The procedure and its benefits and risks were discussed with the patient. Risks specifically discus sed included bleeding and infection. The patient understood the risks and agreed to proceed. The neck was prepped and draped in the usual sterile manner. 3 mL 1% lidocaine was used for local anesthesia . 6 passes were made with a 25G needle into the lesion. Appropriate needle location was documented with continuous sonographic guidance. A sterile bandage was applied. There were no immediate compli cations. FINDINGS: Grayscale ultrasound images demonstrate biopsy needles advanced into a 1.8 x 1.6 x 1.3 cm hypoechoic mass with lobular margins in the right thyroid. IMPRESSION: 1. Successful ultrasound-guided fine needle aspiration of a 1.8 cm TI RADS 4 right thyroid nodule. Reviewed, dictated and finalized at location A. IMPRESSION: 1. Successful ultrasound-guided fine needle aspiration of a 1.8 cm TI RADS 4 r ight thyroid nodule.
== END 2021-10-17 09:01 | disposition home or self-care (01) ==
LOC: ANHIMG 09:02
PROVIDERS: PCP Internal Medicine; Visit Provider Internal Medicine
DX: E04.2 Nontoxic multinodular goiter (principal)
CPT/HCPCS: 10005; 88173; 88305

== ENCOUNTER 2021-11-09 08:46 | Outpatient (CLI) | payer MEDICARE, SELFPAY ==
[2021-11-09 09:39] LABS: Alanine Aminotransferase 24 U/L (6-35); Albumin Level 4.3 g/dL (3.5-5.1); Alkaline Phosphatase 89 U/L (38-126); Anion Gap 7 mmol/L (8-16); Aspartate Amino Transferase 30 U/L (14-36); Bilirubin,Total 0.2 mg/dL (0.2-1.3); Blood Urea Nitrogen 10 mg/dL (7-17); Calcium 8.7 mg/dL (8.4-10.2); Carbon Dioxide 25 mmol/L (22-30); Chloride 108 mmol/L (98-107); Cholesterol 198 mg/dL (0-200); Estimated Glomerular Filt Rate > 60; Glucose 81 mg/dL (65-110); HDL Direct 82 mg/dL; Potassium 4.4 mmol/L (3.4-5.0); Sodium 140 mmol/L (137-145); Triglycerides 107 mg/dL (<150); Uric Acid 6.6 mg/dL (2.5-7.5)
[2021-11-09 09:50] LABS: LDL Cholesterol Direct 80 mg/dL
== END 2021-11-09 08:47 | disposition home or self-care (01) ==
PROVIDERS: PCP Internal Medicine; Visit Provider Nurse Practitioner
DX: Z13.6 Encounter for screening for cardiovascular disorders (principal); Z79.899 Other long term (current) drug therapy; Z13.220 Encounter for screening for lipoid disorders; Z87.39 Personal history of other diseases of the musculoskeletal system and connective tissue; M11.249 Other chondrocalcinosis, unspecified hand; Z13.21 Encounter for screening for nutritional disorder
CPT/HCPCS: 36415; 80053; 80061; 82306; 84550

== ENCOUNTER 2022-01-11 08:44 | Outpatient (CLI) | payer MEDICARE, SELFPAY ==
--- NOTE | ~2022-01-11 | DEXA_ITS ---
Bone Density Report Name: JOSE ARMANDO HALE Age: 71 Sex: Female Ethnicity: White Date of : 1950 Indication: postmenopausal; screening for osteoporosis; height loss; prior fracture; asthma or emphysema; Referring Provider: NASH HERNANDEZ Study: Bone densitometry was performed. Exam Date: January 11, 2022 Accession number: [id number] Bone Density: Region BMD T-score Z-score Classification AP Spine(L1, L2) 1.050 0.6 2.6 Normal Femoral Neck (Left) 0.538 -2.8 -1.1 Osteoporosis Total Hip (Left) 0.578 -3.0 -1.5 Osteoporosis Femoral Neck (Right) 0.549 -2.7 -1.0 Osteoporosis Total Hip (Right) 0.613 -2.7 -1.2 Osteoporosis Total Hip Mean 0.596 -2.9 -1.4 Osteoporosis World Health Organization criteria for BMD impression classify patients as: Normal (T-score at or above -1.0), Osteopenia (T-score between -1.0 and -2.5), or Osteoporosis (T-score at or below -2.5). 10-year Fracture Risk: FRAX not reported because: Some T-score for Spine Total or Hip Total or Femoral Neck at or below -2.5 Clinical Information Provided by Patient: Has had a low trauma fracture Has used the following medications: Vitamin D, Calcium Has the following medical conditions: Asthma or Emphysema Patient maximum height was 63 Menopause Age: 44 Drinks caffeinated beverages Onset of menses at age 13 Number of children 2 Impression: The patient has established osteoporosis, based on the Left Total Hip T-score and the existence of a prior fracture. The patient has risk factors, including: previous fracture. Discussion: HIGH RISK OF FRACTURE. BONE DENSITY IS UNDESIRABLY LOW AT ONE OR MORE SKELETAL SITES, CONSISTENT WITH POSTMENOPAUSAL OSTEOPOROSIS. This patient's lowest T-score, in a patient who has previously fractured, meets the World Health Organization's (WHO) criteria for severe osteoporosis. In untreated patients, the risk of osteoporotic fracture increases approximately two-fold for each 1.0 SD decrease in T-score. Low bone density is not the only risk factor for fracture; also consider factors such as patient's age, frailty or poor health, risk of falling, risk of injury, previous osteoporotic fracture, family history of osteoporosis, cigarette smoking, low body weight, etc. Not everyone with low bone mineral density has osteoporosis; osteomalacia and other metabolic bone disorders should also be considered. Patients who have osteoporosis should be evaluated for specific diseases and conditions (secondary causes) that may cause or contribute to bone loss. The [place] Association of Clinical Endocrinologists (AACE) and National Osteoporosis Foundation (NOF) recommend pharmacologic intervention for all postmenopausal women whose T-score is in this range. The patient should follow a healthful lifestyle (good nutrition with adequate calcium
--- NOTE | ~2022-01-11 | MM_ITS ---
EXAMINATION: MM screening [facility] BI w nisha HISTORY: Screening mammogram TECHNIQUE: Craniocaudal and mediolateral oblique 3-D tomosynthesis images were obtained and synthetic 2-D images were generated. CAD analysis was submitted and interpreted. COMPARISON: 06/08/2018, 11/04/2013, 10/08/2010 BREAST PARENCHYMAL COMPOSITION: There are scattered areas of fibroglandular density. FINDINGS: There is no suspicious mass, calcification, or architectural distortion to suggest malignan cy in either breast. There has been no suspicious interval change. IMPRESSION: 1. No mammographic evidence of malignancy. 2. Recommend routine screening mammography in one year. BI-RADS Category 1: Negative Reviewed, dictated and finalized at location A.
== END 2022-01-11 08:45 | disposition home or self-care (01) ==
LOC: ANHIMG 08:44
PROVIDERS: PCP Internal Medicine; Visit Provider Internal Medicine
DX: Z12.31 Encounter for screening mammogram for malignant neoplasm of breast (principal); Z78.0 Asymptomatic menopausal state; M81.0 Age-related osteoporosis without current pathological fracture
CPT/HCPCS: 77063; 77067; 77080

== ENCOUNTER 2022-05-21 08:16 | Outpatient (CLI) | payer MEDICARE, SELFPAY ==
[2022-05-21 09:12] LABS: Alanine Aminotransferase 25 U/L (6-35); Albumin Level 4.1 g/dL (3.5-5.1); Alkaline Phosphatase 61 U/L (38-126); Anion Gap 10 mmol/L (8-16); Aspartate Amino Transferase 27 U/L (14-36); Bilirubin,Total 0.3 mg/dL (0.2-1.3); Blood Urea Nitrogen 17 mg/dL (7-17); Calcium 8.7 mg/dL (8.4-10.2); Carbon Dioxide 26 mmol/L (22-30); Chloride 103 mmol/L (98-107); Cholesterol 198 mg/dL (0-200); Estimated Glomerular Filt Rate > 60; Glucose 99 mg/dL (65-110); HDL Direct 81 mg/dL; Potassium 4.1 mmol/L (3.4-5.0); Sodium 139 mmol/L (137-145); Triglycerides 54 mg/dL (<150); Uric Acid 4.8 mg/dL (2.5-7.5)
[2022-05-21 09:23] LABS: LDL Cholesterol Direct 76 mg/dL
[2022-05-21 09:40] LABS: Thyroid Stimulating Hormone 0.488 uIU/mL (0.465-4.680)
== END 2022-05-21 08:17 | disposition home or self-care (01) ==
PROVIDERS: PCP Internal Medicine; Visit Provider Nurse Practitioner
DX: E78.5 Hyperlipidemia, unspecified (principal); Z87.39 Personal history of other diseases of the musculoskeletal system and connective tissue; E04.2 Nontoxic multinodular goiter; R68.89 Other general symptoms and signs
CPT/HCPCS: 36415; 80053; 80061; 84443; 84550

== ENCOUNTER 2022-11-26 07:18 | Outpatient (CLI) | payer MEDICARE, SELFPAY ==
[2022-11-26 07:49] LABS: Alanine Aminotransferase 23 U/L (6-35); Albumin Level 4.1 g/dL (3.5-5.1); Alkaline Phosphatase 54 U/L (38-126); Anion Gap 6 mmol/L (8-16); Aspartate Amino Transferase 27 U/L (14-36); Bilirubin,Total 0.5 mg/dL (0.2-1.3); Blood Urea Nitrogen 14 mg/dL (7-17); Calcium 8.3 mg/dL (8.4-10.2); Carbon Dioxide 24 mmol/L (22-30); Chloride 106 mmol/L (98-107); Cholesterol 186 mg/dL (0-200); Estimated Glomerular Filt Rate > 60; Glucose 100 mg/dL (65-110); HDL Direct 85 mg/dL; Sodium 136 mmol/L (137-145); Triglycerides 72 mg/dL (<150)
[2022-11-26 08:00] LABS: LDL Cholesterol Direct 79 mg/dL
== END 2022-11-26 07:19 | disposition home or self-care (01) ==
LOC: ANHLAB 07:20
PROVIDERS: PCP Family Medicine; Visit Provider Nurse Practitioner
DX: E78.5 Hyperlipidemia, unspecified (principal); E55.9 Vitamin D deficiency, unspecified
CPT/HCPCS: 36415; 80053; 80061; 82306

== ENCOUNTER 2023-03-12 08:41 | Outpatient (CLI) | payer MEDICARE, SELFPAY ==
--- NOTE | ~2023-03-12 | MM_ITS ---
EXAMINATION: MM screening [facility] BI w nisha HISTORY: Screening mammogram TECHNIQUE: Craniocaudal and mediolateral oblique 3-D tomosynthesis images were obtained and synthetic 2-D images were generated. CAD analysis was submitted and interpreted. COMPARISON: 01/11/2022, 06/08/2018 BREAST PARENCHYMAL COMPOSITION:There are scattered areas of fibroglandular density. FINDINGS: No suspicious mass, calcification, or architectural distortion are identified in either evelin ast to suggest malignancy. There has been no suspicious interval change. IMPRESSION: No mammographic evidence of malignancy. Recommend routine screening mammography in one year. BI-RADS Category 1: Negative Reviewed, dictated and finalized at location .
== END 2023-03-12 08:42 | disposition home or self-care (01) ==
LOC: ANHIMG 08:44
PROVIDERS: PCP Family Medicine; Visit Provider Family Medicine
DX: Z12.31 Encounter for screening mammogram for malignant neoplasm of breast (principal)
CPT/HCPCS: 77063; 77067

== ENCOUNTER 2023-04-25 09:25 | Emergency (ER) | payer MEDICARE, SELFPAY ==
--- NOTE | ~2023-04-25 | XR_ITS ---
XR finger 3rd LT min 2V 04/25/2023 09:53 Indication: Third finger laceration Procedure: 3 views left third finger Comparison: No prior studies for comparison. Findings: There is soft tissue swelling overlying the distal phalanx. There are ossific densities adj acent to the distal phalanx, consistent with avulsion fractures. There is advanced osteoarthritis of the distal interphalangeal joint. Impression: 1: Small ossific densities adjacent to the third distal interphalangeal joint, consistent with avulsi on fracture fragments. Reviewed, dictated and finalized at location B. Impression: 1: Small ossific densities adjacent to the third distal interphalangeal joint, consistent with avulsion fracture fragments.
[2023-04-25 09:33] VITALS: BP 153/72; PULSE 84; RESP 18; TEMP 36.6; O2SAT 96
--- NOTE | 2023-04-25 11:26 | ED.WOUNDLAC ---
HPI - Wound/Laceration General Chief Complaint: Wound/Laceration Stated Complaint: laceration to left middle finger Time Seen by Provider: 04/25/23 09:56 Source: patient Mode of arrival: ambulatory Limitations: no limitations History of Present Illness HPI narrative: This is a 72-year-old female that presents to the emergency department for laceration to left third finger sustained just prior to arrival. Sustained laceration via an electric guillotine trimmer. Reports bleeding and pain to the area. Reports she is up-to-date on tetanus. Denies decreased range of motion or numbness. Related Data Home Medications Medication Instructions Recorded Confirmed multivitamin 1 tablet PO DAILY 06/16/19 05/28/22 Allergies Allergy/AdvReac Type Severity Reaction Status Date / Time erythromycin base Allergy Severe Hives / Verified 12/13/22 09:46 Red Face tramadol Allergy Severe Hives Verified 12/13/22 09:46 tetracycline Allergy Intermediate Hives Verified 12/13/22 09:46 latex Allergy Mild rash Verified 12/13/22 09:46 Review of Systems Review of Systems: CONSTITUTIONAL: Denies fever SKIN: Reports laceration NEUROLOGIC: Denies numbness All systems reviewed & are unremarkable except as noted in HPI and below PMFSH Past Medical History Medical History Arthritis Asthma Chronic obstructive pulmonary disease Erosive osteoarthritis of hands, bilateral H/O: gout Moderate asthma without complication Surgical History Surgical History Delivery by section H/O foot surgery History of carpal tunnel release History of parathyroid surgery Family History Family History Mother Family history of osteoporosis Depression Family history of migraine headaches Family history of osteoarthritis Cerebrovascular accident Family history of cardiac disorder Patient's mother is Sibling Family history of osteoporosis Depression Family history of migraine headaches Family history of osteoarthritis Family history of heart disease in male family member before age 55, Onset Age: 34 Patient's brother is Family history of cardiovascular disease Acute myocardial infarction Family history of Parkinson's disease Family history of dementia Father Acute myocardial infarction Other Family history of multiple sclerosis Social History Social History (Updated 12/13/22 @ 09:48 by Nina Coronel CMA) Smoking packs per day: 0.10 Smoking cigarettes per day: 2.0 Years smoked: 30 Smoking pack-years: 3.00 Smoking status: Former smoker Tobacco type: cigarettes Second hand tobacco smoke exposure: Yes Alcohol intake: current Alcohol use details: social Substance use: never Substance use type: does not use Lack of Transportation: No Lack of Food: Never True Current Housing: I Have Housing Concerned About Future Housing: No Difficulty Paying Gas/Electric Bills: No Difficulty Paying for Meds: No Currently Unemployed: No Education: High School Diploma/GED Difficulty w/ Childcare or Family Care: No Gender identity (if verbalized by the patient): Female Spiritual care concerns: No Exam Narrative: GENERAL: Well-appearing, well-nourished, and in no acute distress. HEAD: Normocephalic, atraumatic. EYES: EOMI. EXTREMITIES: Normal range of motion. Mild edema and bruising to the left third finger palmar surface distal phalanx with 2 cm irregular laceration into subcutaneous tissue SKIN: Warm, dry, no rash. NEURO: No focal deficits. Alert and oriented x3. PSYCH: Normal mood and affect Course Course Emergency Course: Patient educated on further wound care. Agrees with plan of care Vital Signs Vital signs: Vital Signs Temperature 98 F 04/25/23 09:33 Pulse Rate
[2023-04-25] MEDS: WATER, STERILE FOR INJECTION 10 ML VIAL XX (12:02)
[2023-04-25] MEDS: ceFAZolin SODIUM 1 GM VIAL IM (12:02)
== END 2023-04-25 12:09 | disposition home or self-care (01) ==
PROVIDERS: Emergency Provider Physician Assistant; PCP Family Medicine
DX: S62.633B Displaced fracture of distal phalanx of left middle finger, initial encounter for open fracture (principal); W29.3XXA Contact with powered garden and outdoor hand tools and machinery, initial encounter
CPT/HCPCS: 12001; 73140; 96372; 99283; J0690

== ENCOUNTER 2023-06-17 08:37 | Outpatient (CLI) | payer MEDICARE, SELFPAY ==
[2023-06-17 09:15] LABS: Alanine Aminotransferase 26 U/L (6-35); Albumin Level 4.4 g/dL (3.5-5.1); Alkaline Phosphatase 73 U/L (38-126); Anion Gap 6 mmol/L (8-16); Aspartate Amino Transferase 32 U/L (14-36); Bilirubin,Total 0.5 mg/dL (0.2-1.3); Blood Urea Nitrogen 13 mg/dL (7-17); Calcium 8.8 mg/dL (8.4-10.2); Carbon Dioxide 26 mmol/L (22-30); Chloride 104 mmol/L (98-107); Estimated Glomerular Filt Rate > 60; Glucose 106 mg/dL (65-110); Potassium 4.4 mmol/L (3.4-5.0); Sodium 136 mmol/L (137-145)
[2023-06-17 09:32] LABS: Hematocrit 45.7 % (37.0-47.0); Hemoglobin 14.3 g/dL (12.0-15.0); Mean Corpuscular HGB Conc 31.3 g/dl (32-36); Mean Platelet Volume 9.9 fl (7.4-10.4); Platelet Count Result 277 k/mm3 (150-375); Red Blood Count 4.76 M/mm3 (4.2-5.4); Red Cell Distribution Width 13.2 % (11.5-14.5); White Blood Count 5.2 K/mm3 (4.5-10.0)
[2023-06-17 09:56] LABS: Vitamin D 25 Hydroxy 36.9 ng/mL
== END 2023-06-17 08:38 | disposition home or self-care (01) ==
PROVIDERS: PCP Nurse Practitioner; Visit Provider Family Medicine
DX: J44.1 Chronic obstructive pulmonary disease with (acute) exacerbation (principal); J44.9 Chronic obstructive pulmonary disease, unspecified; J45.909 Unspecified asthma, uncomplicated; M11.249 Other chondrocalcinosis, unspecified hand; M15.4 Erosive (osteo)arthritis; M81.0 Age-related osteoporosis without current pathological fracture; Z87.891 Personal history of nicotine dependence; E55.9 Vitamin D deficiency, unspecified
CPT/HCPCS: 36415; 80053; 82306; 85027

== ENCOUNTER 2023-12-23 11:12 | Outpatient (CLI) | payer MEDICARE, SELFPAY ==
[2023-12-23 12:15] LABS: Alanine Aminotransferase 19 U/L (6-35); Albumin Level 4.2 g/dL (3.5-5.1); Alkaline Phosphatase 66 U/L (38-126); Anion Gap 6 mmol/L (4-12); Aspartate Amino Transferase 27 U/L (14-36); Bilirubin,Total 0.5 mg/dL (0.2-1.3); Blood Urea Nitrogen 12 mg/dL (7-17); Calcium 8.9 mg/dL (8.4-10.2); Carbon Dioxide 28 mmol/L (22-30); Chloride 104 mmol/L (98-107); Cholesterol 186 mg/dL (0-200); Estimated Glomerular Filt Rate > 60; Glucose 93 mg/dL (65-110); HDL Direct 90 mg/dL; Sodium 138 mmol/L (137-145); Triglycerides 55 mg/dL (<150)
[2023-12-23 12:25] LABS: LDL Cholesterol Direct 88 mg/dL
== END 2023-12-23 11:13 | disposition home or self-care (01) ==
PROVIDERS: PCP Nurse Practitioner; Visit Provider Nurse Practitioner
DX: E78.5 Hyperlipidemia, unspecified (principal)
CPT/HCPCS: 36415; 80053; 80061

== ENCOUNTER 2024-06-10 11:25 | Outpatient (CLI) | payer MEDICARE, SELFPAY ==
[2024-06-10 12:00] LABS: Alanine Aminotransferase 26 U/L (6-35); Albumin Level 4.1 g/dL (3.5-5.1); Alkaline Phosphatase 71 U/L (38-126); Anion Gap 2 mmol/L (4-12); Aspartate Amino Transferase 29 U/L (14-36); Bilirubin,Total 0.5 mg/dL (0.2-1.3); Blood Urea Nitrogen 17 mg/dL (7-17); Calcium 9.1 mg/dL (8.4-10.2); Carbon Dioxide 29 mmol/L (22-30); Chloride 106 mmol/L (98-107); Cholesterol 210 mg/dL (0-200); Estimated Glomerular Filt Rate > 60; Glucose 111 mg/dL (65-110); HDL Direct 108 mg/dL; Potassium 3.9 mmol/L (3.4-5.0); Sodium 137 mmol/L (137-145); Triglycerides 50 mg/dL (<150)
[2024-06-10 12:11] LABS: LDL Cholesterol Direct 78 mg/dL
[2024-06-10 13:05] LABS: Vitamin D 25 Hydroxy 33.6 ng/mL
== END 2024-06-10 11:26 | disposition home or self-care (01) ==
PROVIDERS: PCP Nurse Practitioner; Visit Provider Nurse Practitioner
DX: E78.5 Hyperlipidemia, unspecified (principal); E55.9 Vitamin D deficiency, unspecified
CPT/HCPCS: 36415; 80053; 80061; 82306

== ENCOUNTER 2024-08-08 08:29 | Emergency (ER) | payer MEDICARE, SELFPAY ==
--- NOTE | ~2024-08-08 | CT_ITS ---
EXAMINATION: CT abdomen pelvis wo con DATE: 08/08/2024 10:59 INDICATION: Right back and flank pain. TECHNIQUE: Computed tomography (CT) of the abdomen and pelvis was performed without intravenous contr ast. Automated exposure control and iterative reconstruction technique were employed. The dose-length product was 168.11 mGy-cm. COMPARISON: CT dated 10/16/2021 and 04/20/2012 FINDINGS: There is new consolidation which could represent atelectasis or pneumonia extending peripherally from a region of chronic bronchiectasis and scarring in the posterior basilar segment of the left lower l obe. Mild discoid atelectasis in the right lower lobe. Small calcified right lower lobe nodule along with multiple small splenic calcification consistent with old granulomatous disease. Heart size is no rmal. Atherosclerotic coronary artery calcific location. No pericardial or pleural effusion. Liver, g allbladder, pancreas, bilateral adrenal glands and left kidney are normal. 3 mm focus of increased de nsity at the lower pole of the right kidney which could represent either a small nonobstructing stone or a hyperdense proteinaceous/hemorrhagic cyst. No ureteral stones or hydronephrosis. Bladder, uteru s and bilateral adnexa are unremarkable. No bowel obstruction. There is mild colonic diverticulosis w ith a sigmoid predominance. There is no adjacent inflammatory change to suggest diverticulitis. The appendix is not visualized. No pericecal inflammatory change to suggest acute appendicitis. No free i ntraperitoneal gas or fluid. No pathologically enlarged abdominal or pelvic lymphadenopathy. Lumbar l evoscoliosis with severe lumbar and lower thoracic spondylosis. 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 IMPRESSION: 1. Increasing consolidation in the posterior basilar left lower lobe which could represent atelectasi s or pneumonia extending peripherally from the region of chronic bronchiectasis and scarring consiste nt with likely sequela prior infection. 2. 3 mm nonobstructing stone versus proteinaceous/hemorrhagic cyst at the lower pole the right kidney . Reviewed, dictated and finalized at location A. SE DRIVER IMPRESSION: 1. Increasing consolidation in the posterior basilar left lower lobe which coul d represent atelectasis or pneumonia extending peripherally from the region of chronic bronchiectasis and scarring consistent with likely sequela prior infect ion. 2. 3 mm nonobstructing stone versus proteinaceous/hemorrhagic cyst at the lower pole the right kidney.
--- NOTE | ~2024-08-08 | XR_ITS ---
EXAMINATION: XR chest 2V DATE: 08/08/2024 11:44 INDICATION: Left-sided back pain and concern for pneumonia TECHNIQUE: PA and lateral views of the chest were obtained. COMPARISON: Chest radiograph and CT dated 10/16/2021 FINDINGS: Unchanged mild elevation the left hemidiaphragm. Full report cardiac opacity medial left lung base wh ich could represent atelectasis and/or pneumonia. Thinner linear discoid atelectasis more anterolater ally at the lingula and at the retrodiaphragmatic right lower lobe. No pulmonary edema, pleural effus ion or pneumothorax. The cardiomediastinal silhouette is normal. Visualized bones and soft tissues ar e unremarkable. IMPRESSION: 1. New retrocardiac airspace opacity in the left lower lobe which could represent atelectasis and/or pneumonia. Reviewed, dictated and finalized at location A. TIC PANEL INSTALLER IMPRESSION: 1. New retrocardiac airspace opacity in the left lower lobe which could represe nt atelectasis and/or pneumonia.
[2024-08-08 08:31] VITALS: BP 157/67; PULSE 88; RESP 18; TEMP 36.6; O2SAT 98
--- OUTSIDE RECORDS SUMMARY | 2024-08-08 08:31 | XMS_ITS | Referral Summary ---
Author Organization [facility] [employer] Address [address] [place] [address] Care Team Providers Care Bias Cutter Name Role Phone Farhat Murray MD Primary Care Provider [phone] Farhat Murray MD Unavailable [phone] [facility],non-owned Affiliates and Associated Physician Practices is amultiple site organization consisting of ambulatory clinics and hospital sitesin [place], [place], [place] and [place]. This disclosure is being madepursuant to the Care Everywhere program and may not contain all information available regarding this patient. Last updated 18.[facility] [employer] Social History Tobacco Use Types Packs/Day Years Used Date Smoking Tobacco: Never Assessed Sex and Gender Information Value Date Recorded Sex Assigned at Not on file Gender Identity Not on file Sexual Orientation Not on file Plan of Treatment Not on file Care Teams Bias Cutter Relationship Specialty Start Date End Date Farhat Murray MD [address] [place] [id number] PCP - General 09/09/19 Farhat Murray MD [address] [place] [address] 09/09/19
--- OUTSIDE RECORDS SUMMARY | 2024-08-08 08:31 | XMS_ITS | Clinical Summary ---
Author Organization [facility] [employer] Address [address] [place] [address] Care Team Providers Care Chemical Plant Worker Name Role Phone Farhat Murray MD Primary Care Provider [phone] Farhat Murray MD Unavailable [phone] Source Comments [facility],non-owned Affiliates and Associated Physician Practices is amultiple site organization consisting of ambulatory clinics and hospital sitesin [place], [place], [place] and [place]. This disclosure is being madepursuant to the Care Everywhere program and may not contain all information available regarding this patient. Last updated 18.[facility] [employer] Social History Tobacco Use Types Packs/Day Years Used Date Smoking Tobacco: Never Assessed Sex and Gender Information Value Date Recorded Sex Assigned at Not on file Gender Identity Not on file Sexual Orientation Not on file Plan of Treatment Health Maintenance Due Date Last Done Comments BONE DENSITY TESTING 1950 COLOGUARD (AGES 45-75) - COL ON CA SCREENING 1950 COLON MONITORING 1950 COLONOSCOPY - COLON CA SCREENING 1950 CT COLONOGRAPHY - COLON CA SCREENING 1950 Colorectal Cancer Screening 1950 FIT - COLON CA SCREENING 1950 FLEX SIG - COLON CA SCREENING 1950 LIPID TESTING 1950 MAMMOGRAM 1950 MEDICARE AWV 12 MONTHS 1950 HEPATITIS C SCREENING 11/17/1970 DTAP/TDAP/TD VACCINES (1 - Tdap) 11/22/1971 PNEUMOCOCCAL VACCINE 50+ (1 of 1 - PCV) 2002 ZOSTER VACCINE (1 of 2) 2002 COVID-19 VACCINE ( - 2023-2 5 season) 2024 INFLUENZA VACCINE (#1) 2024 DEPRESSION SCREENING 06/30/2024 Respiratory Syncytial Virus (RSV) Vaccine Pt: or over 60 yrs (1 - 1-dose 75+ series) 11/22/2027 HEPATITIS B VACCINE Aged Out No longe r eligible based on patient's age to complete this topic HIB VACCINE Aged Out No longer eligi ble based on patient's age to complete this topic HPV VACCINE Aged Out No longer eligi ble based on patient's age to complete this topic MENINGOCOCCAL (Group B) VACCINE Aged Out No longer eligible based on patient's age to complete this topic MENINGOCOCCAL VACCINE Aged Out No violette estefania eligible based on patient's age to complete this topic Care Teams Chemical Plant Worker Relationship Specialty Start Date End Date Farhat Murray MD [address] [place] [address] PCP - General 09/09/19 Farhat Murray MD [address] [place] [address] 09/09/19
--- OUTSIDE RECORDS SUMMARY | 2024-08-08 08:31 | XMS_ITS | Encounter Summary ---
Author Organization [facility] Address [address] [place] [address] Care Team Providers Care Roulette Dealer Name Role Phone Farhat Murray MD Primary Care Provider Farhat Murray MD Unavailable [phone] Encounter Details Date Type Department Care Team (Late st Contact Info) Description 09/10/2019 Lab Requisition [facility] [address] [place] [address] Tennille Segovia MD [address] [facility] [address] [place] [address] Social History Tobacco Use Types Packs/Day Years Used Date Smoking Tobacco: Never Assessed Sex and Gender Information Value Date Recorded Sex Assigned at Not on file Gender Identity Not on file Sexual Orientation Not on file documented as of this encounter Plan of Treatment Not on file documented as of this encounter Procedures Procedure Name Priority Date/Time Associated Diagnosis Comments DERMATOPATHOLOGY Routine 09/09/2019 12:0 0 AM CDT documented in this encounter Results * DERMATOPATHOLOGY (09/09/2019 12:00 AM CDT) Case Report Dermatopathology Report Case: [id number] Authorizing Provider: Tennille Segovia MD Collected: 09/09/2019 12:00 AM Ordering Location: [facility] Received: 09/10/2019 07:18 AM Pathologist: Victorina Lao MD Specimen: Skin, left posterior neck 0 3:52 PM CDT DERMATOPATHOLOGY LABORATORY Final Diagnosis Specimen A. SKIN, left posterior neck: EPIDERMOID CYST (L72.0) (see microscopic description) 0 3:52 PM CDT DERMATOPATHOLOGY LABORATORY Clinical History R/O cyst. 0 3:52 PM CDT DERMATOPATHOLOGY LABORATORY Gross Description Specimen A: Received is one formalin filled container labeled with the patient's name and designated left posterior neck. The specimen consists of a 3x3x6 mm piece of skin submitted in cassette 1. 0 3:52 PM CDT DERMATOPATHOLOGY LABORATORY Microscopic Description Specimen A. SKIN, left posterior neck: Within the dermis, there is a space lined by epithelium that resembles normal epidermis and the infundibular portion of the hair follicle. Additional deeper sections were obtained and reviewed. 0 3:52 PM CDT DERMATOPATHOLOGY LABORATORY Disclaimer An external and internal positive and negative controls are appropriate for the histochemical, immunohistochemical and immunofluorescence stain(s) in this case (if any), except where stated explicitly. The performance characteristics of the stain(s) cited in this report were developed and its performance characteristic determined by the Dermatopathology Laboratory at [facility], directed by Dr. Ana Dia. These tests need not be, and therefore are not, approved by the [place] Food and Drug Administration. The tests are used for clinical purposes. Billing Codes Specimen Charges Stain Charges 76509 1 0 3:52 PM CDT DERMATOPATHOLOGY LABORATORY Embedded Images 0 3:52 PM CDT DERMATOPATHOLOGY LABORATORY Pathology/Cytolog y TISSUE SPECIMEN FROM SKIN / Unknown 09/09/2019 09/10/2019 7:18 AM CDT Tennille Segovia MD LAB - PATHOLOGY/CYTO LOGY ORDERABLES DERMATOPATHOLOGY LABORATORY [facility] - Department of Dermatology [address] [place] [address], 5th Floor Lab [address] [phone] documented in this encounter Visit Diagnoses Not on filedocumented in this encounter Care Teams Roulette Dealer Relationship Specialty Start Date End Date Farhat Murray MD [address] [place] [address] PCP - General 09/09/19 Farhat Murray MD [address] [place] [address] 09/09/19 documented as of this encounter
--- OUTSIDE RECORDS SUMMARY | 2024-08-08 08:31 | XMS_ITS | Continuity of Care Document ---
Author Organization [facility] Address [address] [place] [address] Phone Care Team Providers Care Set Up Mechanic Crown Assembly Machine Name Role Phone Melo PT, DPT, Hiren Unavailable Unavailable Procedures Procedure Date Manual Therapy Therapeutic Exercise Therapeutic Exercise Manual Therapy Therapeutic Exercise Manual Therapy Manual Therapy Manual Therapy Manual Therapy Manual Therapy PT Evaluation Moderate Complexity Therapeutic Activities Manual Therapy Therapeutic Exercise Therapeutic Activities Progress Note Therapeutic Activities Therapeutic Exercise Therapeutic Exercise Neuromuscular Re-Ed Therapeutic Activities Neuromuscular Re-Ed Therapeutic Exercise Therapeutic Activities Neuromuscular Re-Ed Therapeutic Exercise PT Evaluation Moderate Complexity Therapeutic Activities Neuromuscular Re-Ed Therapeutic Exercise Advance Directives Directive Yes / No Effective Date File Name No Information Encounters Encounter Description Practice Location Reason(s) For Visit Diagnoses Date Provider Providers Copied on Encounter [facility], [facility] [place], [place], [id number], [place] tel:[phone] [place] No Information 1 Makler Luke. . [facility], [place], [place], [id number], [place] tel:[phone] [place] No Information 1 Makler Luke. . [facility], [place], [place], [address], [place] tel:[phone] [place] No Information 1 Makler Luke. . [facility], [place], [place], [address], [place] tel:[phone] [place] No Information 1 Makler Luke. . [facility], [place], [place], [address], [place] tel:[phone] [place] No Information 1 Makler Luke. . [facility], [place], [place], [address], [place] tel:[phone] [place] No Information 1 Makler Luke. . [facility], [place], [address], [place] tel:[phone] [place] No Information 1 Makler Luke. . [facility], [place], [place], [address], [place] tel:[phone] [place] No Information 1 Makler Luke. . [facility], [place], [address], [place] tel:[phone] [place] No Information 1 Makler Luke. . [facility], [place], [address], [place] tel:[phone] [place] No Information 1 Makler Luke. . [facility], [place], [address], tel:[phone] [place] No Information 1 Melo Lolayessi. . [facility], [place], [place], [address], tel:[phone] [place] No Information 1 Melo Maradiaga. . [facility], [place], [place], [address], tel:[phone] [place] No Information 1 Melo [place]ake. . [facility], [place], [place], [address], tel:[phone] [place] No Information 1 Melo Hiren. . Family History Family Member Type Diagnosis Age At Onset No Information Payers Payer name Insurance type Covered constitution party ID Authoriza tion(s) Medicare [place] MB [id number] Cigna Medicare Supplement Insurance CI [id number] Social History Type Description Quantity Date Captured Comments Sex Female Smoking Status No Information Chief Complaint And Reason For Visit No Information Reason For Referral Reason For Referral No Information Plan Of Treatment Date Type Action Status Goal Tobacco Cessation Counseling completed Goal Tobacco cessation counseling completed Goal Tobacco Cessation Counseling completed Goal Tobacco cessation counseling completed History Of Present Illness Encounter Date Complaint History Of Prese nt Illness No Information Functional Status Date Functional Assessmen t No Information Instructions Date Instruction Additional Infor mation No Information Assessments Type Assessment Date No Information Patient Care Teams Name Effective Dates (start - stop) Status Members No Information
--- OUTSIDE RECORDS SUMMARY | 2024-08-08 08:31 | XMS_ITS | CONTINUITY OF CARE DOCUMENT ---
Author Name dave acosta Address Unknown Organization [facility] Address [address] [place] [address] [address] [place] [address] Phone [phone] Care Team Providers Care Physical Anthropologist Name Role Phone dave acosta Unavailable Unavailable
--- OUTSIDE RECORDS SUMMARY | 2024-08-08 08:31 | XMS_ITS | Patient Health Summary ---
Author Organization [facility] Address [address] [facility] [place] [address] Care Team Providers Care Group Teacher Name Role Phone Farhat Murray MD Primary Care Provider Farhat Murray MD Unavailable [phone] Note from [facility],non-owned Affiliates and Associated Physician Practices is amultiple site organization consisting of ambulatory clinics and hospital sitesin [place], [place], [place] and [place]. This disclosure is being madepursuant to the Care Everywhere program and may not contain all information available regarding this patient. Last updated 18.[facility] Social History Tobacco Use Types Packs/Day Years Used Date Smoking Tobacco: Never Assessed Sex and Gender Information Value Date Recorded Sex Assigned at Not on file Gender Identity Not on file Sexual Orientation Not on file Procedures * DERMATOPATHOLOGY(Performed 01/28/2022) * DERMATOPATHOLOGY(Performed 09/09/2019) Results * DERMATOPATHOLOGY (01/28/2022 12:00 AM CDT) Only the most recent of2 resultswithin the time period is included. Case Report Dermatopathology Report Case: [id number] Authorizing Provider: Tennille Segovia MD Collected: 01/28/2022 12:00 AM Ordering Location: [facility] DermPath Lab Received: 01/28/2022 05:19 PM Pathologist: Loretta Pappas MD Specimen: Skin, left back 2 1:36 PM CDT DERMATOPATHOLOGY LABORATORY Final Diagnosis Specimen A. SKIN, left back: LICHEN PLANUS-LIKE KERATOSIS (BENIGN LICHENOID KERATOSIS) (L82.1) 2 1:36 PM CDT DERMATOPATHOLOGY LABORATORY Clinical History R/O: BCC 2 1:36 PM CDT DERMATOPATHOLOGY LABORATORY Gross Description Specimen A: Received is one formalin filled container labeled with the patient's name and designated left back. The specimen consists of a shave biopsy measuring [id number]. Jar 0. 2 1:36 PM CDT DERMATOPATHOLOGY LABORATORY Microscopic Description Specimen A. SKIN, left back: The epidermis is mildly acanthotic. There is a lichenoid infiltrate with vacuolar changes of basilar keratinocytes and scattered necrotic keratinocytes. 2 1:36 PM CDT DERMATOPATHOLOGY LABORATORY Disclaimer An external and internal positive and negative controls are appropriate for the histochemical, immunohistochemical and immunofluorescence stain(s) in this case (if any), except where stated explicitly. The performance characteristics of the stain(s) cited in this report were developed and its performance characteristic determined by the Dermatopathology Laboratory at [facility], directed by Dr. Ana Dia. These tests need not be, and therefore are not, approved by the [place] Food and Drug Administration. The tests are used for clinical purposes. Billing Codes Specimen Charges Stain Charges 63173 1 2 1:36 PM CDT DERMATOPATHOLOGY LABORATORY Embedded Images 2 1:36 PM CDT DERMATOPATHOLOGY LABORATORY Pathology/Cytolog y TISSUE SPECIMEN FROM SKIN / Unknown 01/28/2022 01/28/2022 5:19 PM CDT Tennille Segovia MD LAB - PATHOLOGY/CYTO LOGY ORDERABLES Performing Organization Address City/State/[facility] Co de Phone Number DERMATOPATHOLOGY LABORATORY [facility] - Department of Dermatology [facility] Medicine [address] [place] [address], [address] [phone] Care Teams Group Teacher Relationship Specialty Start Date End Date Farhat Murray MD [address] [place] [phone] PCP - General 09/09/19 Farhat Murray MD [address] [place] [address] 09/09/19
--- OUTSIDE RECORDS SUMMARY | 2024-08-08 08:31 | XMS_ITS | Clinical Summary ---
Author Organization [facility] Address [address] [place] [address] Care Team Providers Care Cigar Bander Hand Name Role Phone Unavailable Primary Care Provider Unavailabl e Social History Tobacco Use Types Packs/Day Years Used Date Smoking Tobacco: Never Assessed Comments Unknown Sex and Gender Information Value Date Recorded Sex Assigned at Not on file Legal Sex Female 8:10 PM CDT Gender Identity Not on file Sexual Orientation Not on file Plan of Treatment Health Maintenance Due Date Last Done Comments Colorectal Cancer Screening Colonoscopy (10 Years) 1952 Hepatitis C 1970 DTaP, Tdap and Td Vaccines ( 1 - Tdap) 11/22/1971 Mammogram Screening 1992 Zoster Vaccines (1 of 2) 2002 Dexa Scan (General) 2017 Pneumococcal Vaccine: 65+ Ye ars (1 of 1 - PCV) 2017 COVID-19 Vaccine ( - 2023-2 5 season) 2024 Influenza Adult (#1) 2024 RSV Immunization or 60+ Years (1 - 1-dose 75+ series) 11/22/2027 Meningococcal B Vaccine Aged Out No l onger eligible based on patient's age to complete this topic Meningococcal Vaccine Aged Out No violette estefania eligible based on patient's age to complete this topic RSV Immunizations Under 20 Months Aged Out No longer eligible based on patient's age to complete this topic
--- OUTSIDE RECORDS SUMMARY | 2024-08-08 09:30 | XMS_ITS | Encounter Summary ---
Author Organization [facility] Address [address] [facility] [place] [address] Care Team Providers Care Sales Support Technician Name Role Phone Farhat Murray MD Primary Care Provider Farhat Murray MD Unavailable [phone] Encounter Details Date Type Department Care Team (Late st Contact Info) Description 09/10/2019 Lab Requisition [facility] DermPath Lab [address] [facility] [place] [address] Tennille Segovia MD [address] [facility] [address] [place] [address] Social History Tobacco Use Types Packs/Day Years [...] AM CDT) Case Report Dermatopathology Report Case: [id number] Authorizing Provider: Tennille Segovia MD Collected: 09/09/2019 12:00 AM Ordering Location: [facility] DermPath Lab Received: 09/10/2019 07:18 AM Pathologist: [...] characteristic determined by the Dermatopathology Laboratory at [facility], directed by Dr. Ana Dia. These tests need not be, and therefore are not, approved by the [place] Food and Drug Administration. The tests are used for clinical purposes. Billing Codes Specimen Charges Stain Charges 17409 1 0 3:52 PM CDT DERMATOPATHOLOGY LABORATORY Embedded Images 0 3:52 PM CDT DERMATOPATHOLOGY LABORATORY Pathology/Cytolog y TISSUE SPECIMEN FROM SKIN / Unknown 09/09/2019 09/10/2019 7:18 AM CDT Tennille Segovia MD LAB - PATHOLOGY/CYTO LOGY ORDERABLES DERMATOPATHOLOGY LABORATORY [facility] - Department of Dermatology [address] [place] [address], 5th Floor Lab [address] [phone] documented in this encounter Visit Diagnoses Not on filedocumented in this encounter Care Teams Sales Support Technician Relationship Specialty Start Date End Date Farhat Murray MD [address] [place] [address] PCP - General 09/09/19 Farhat Murray MD [address] [place] [address] 09/09/19 documented as of this encounter
--- OUTSIDE RECORDS SUMMARY | 2024-08-08 09:30 | XMS_ITS | Patient Health Summary ---
Author Organization [facility] Address [address] [place] [address] Care Team Providers Care Electronic Bench Technician Name Role Phone Farhat Murray MD Primary Care Provider Farhat Murray MD Unavailable [phone] Note from [facility],non-owned Affiliates and Associated Physician Practices is amultiple site organization consisting of ambulatory clinics and hospital sitesin [place], [place], [place] and [place]. This disclosure is being madepursuant to the Care Everywhere program and may not contain all information available regarding this patient. Last updated 18.[facility] Social History Tobacco Use Types Packs/Day Years [...] is included. Case Report Dermatopathology Report Case: [id number] Authorizing Provider: Tennille Segovia MD Collected: 01/28/2022 12:00 AM Ordering Location: [facility] DermPath Lab Received: 01/28/2022 05:19 PM Pathologist: [...] specimen consists of a shave biopsy measuring [id number]. Jar 0. 2 1:36 PM CDT DERMATOPATHOLOGY [...] characteristic determined by the Dermatopathology Laboratory at [facility], directed by Dr. Ana Dia. These tests need not be, and therefore are not, approved by the [place] Food and Drug Administration. The tests are used for clinical purposes. Billing Codes Specimen Charges Stain Charges 12218 1 2 1:36 PM CDT DERMATOPATHOLOGY LABORATORY Embedded Images 2 1:36 PM CDT DERMATOPATHOLOGY LABORATORY Pathology/Cytolog y TISSUE SPECIMEN FROM SKIN / Unknown 01/28/2022 01/28/2022 5:19 PM CDT Tennille Segovia MD LAB - PATHOLOGY/CYTO LOGY ORDERABLES Performing Organization Address City/State/[facility] Co de Phone Number DERMATOPATHOLOGY LABORATORY [facility] - Department of Dermatology [facility] Medicine [address] [place] [address], [address] [phone] Care Teams Electronic Bench Technician Relationship Specialty Start Date End Date Farhat Murray MD [address] [place] [phone] PCP - General 09/09/19 Farhat Murray MD [address] [place] [phone] 09/09/19
--- OUTSIDE RECORDS SUMMARY | 2024-08-08 09:30 | XMS_ITS | Clinical Summary ---
Author Organization [facility] [employer] Address [address] [place] [address] Care Team Providers Care Syrup Blender Name Role Phone Farhat Murray MD Primary Care Provider [phone] Farhat Murray MD Unavailable [phone] [facility],non-owned Affiliates and Associated Physician Practices is amultiple site organization consisting of ambulatory clinics and hospital sitesin [place], [place], [place] and [place]. This disclosure is being madepursuant to the Care Everywhere program and may not contain all information available regarding this patient. Last updated 18.[facility] [employer] Social History Tobacco Use Types Packs/Day Years [...] age to complete this topic Care Teams Syrup Blender Relationship Specialty Start Date End Date Farhat Murray MD [address] [place] [address] PCP - General 09/09/19 Farhat Murray MD [address] [place] [address] 09/09/19
--- OUTSIDE RECORDS SUMMARY | 2024-08-08 09:30 | XMS_ITS | Continuity of Care Document ---
Author Organization [facility] Address [address] [place] [address] Phone Care Team Providers Care Layer Off Name Role Phone Melo PT, DPT, Hiren Unavailable Unavailable Procedures Procedure Date Manual Therapy Therapeutic Exercise Therapeutic Exercise Manual Therapy Therapeutic Exercise Manual Therapy Manual Therapy Manual Therapy Manual Therapy Manual Therapy PT Evaluation Moderate Complexity Therapeutic Activities Manual Therapy Therapeutic Exercise Therapeutic Activities Progress Note Therapeutic Activities Therapeutic Exercise Neuromuscular Re-Ed Therapeutic Exercise Therapeutic Activities Neuromuscular Re-Ed Therapeutic Exercise Therapeutic Activities Neuromuscular Re-Ed Therapeutic Exercise PT Evaluation Moderate Complexity Therapeutic Activities Neuromuscular Re-Ed Therapeutic Exercise Advance Directives Directive Yes / No Effective Date File Name No Information Encounters Encounter Description Practice Location Reason(s) For Visit Diagnoses Date Provider Providers Copied on Encounter [facility], [facility], [place], [place], [address], [place] tel:[phone] [place] No Information 1 Makler Luke. . [facility], [place], [place], [address], [place] tel:[phone] [place] No Information 1 Makler Luke. . [facility], [place], [address], [place] tel:[phone] [place] No Information 1 Makler Luke. . [facility], [place], [place], [address], [place] tel:[phone] [place] No Information 1 Makler Luke. . [facility], [place], [place], [address], [place] tel:[phone] [place] No Information 1 Makler Luke. . [facility], [place], [address], [place] tel:[phone] [place] No Information 1 Makler Luke. . [facility], [place], [place], [address], [place] tel:[phone] [place] No Information 1 Makler Luke. . [facility], [place], [place], [address], [place] tel:[phone] [place] No Information 1 Makler Luke. . [facility], [place], [address], [place] tel:[phone] [place] No Information 1 Makler Luke. . [facility], [place], [place], [address], [place] tel:[phone] [place] No Information 1 Makler Luke. . [facility], [place], [place], [address], tel:[phone] [place] No Information 1 Melo Lolayessi. . [facility], [place], [place], [address], tel:[phone] [place] No Information 1 Melo Maradiaga. . [facility], [place], [place], [address], tel:[phone] [place] No Information 1 Melo Davilake. . [facility], [place], [place], [address], tel:[phone] [place] No Information 1 Melo Hiren. . Family History Family Member Type Diagnosis Age At Onset No Information Payers Payer name Insurance type Covered democrat ID Authoriza tion(s) Medicare [place] MB [id number] [employer] Medicare Supplement Insurance [id number] Social History Type Description Quantity Date Captured [...]
--- OUTSIDE RECORDS SUMMARY | 2024-08-08 09:30 | XMS_ITS | CONTINUITY OF CARE DOCUMENT ---
Author Name dave acosta Address Unknown Organization [facility] Address [address] [place] [address] [address] [place] [address] Phone [phone] Care Team Providers Care Cnc Grinder Name Role Phone dave acosta Unavailable Unavailable
--- OUTSIDE RECORDS SUMMARY | 2024-08-08 09:30 | XMS_ITS | Clinical Summary ---
Author Organization [facility] Address [address] [place] [address] Care Team Providers Care Billet Heater Name Role Phone Unavailable Primary Care Provider [...]
--- OUTSIDE RECORDS SUMMARY | 2024-08-08 09:30 | XMS_ITS | Referral Summary ---
Author Organization [facility] [employer] Address [address] [place] [address] Care Team Providers Care Leadership Recruiter Name Role Phone Farhat Murray MD Primary Care Provider [phone] Farhat Murray MD Unavailable [phone] Source Comments [facility],non-owned Affiliates and Associated Physician Practices is amultiple site organization consisting of ambulatory clinics and hospital sitesin [place], [place] and [place]. This disclosure is being madepursuant to the Care Everywhere program and may not contain all information available regarding this patient. Last updated 18.[facility] [employer] Social History Tobacco Use Types Packs/Day Years Used Date Smoking Tobacco: Never Assessed Sex and Gender Information Value Date Recorded Sex Assigned at Not on file Gender Identity Not on file Sexual Orientation Not on file Plan of Treatment Not on file Care Teams Leadership Recruiter Relationship Specialty Start Date End Date Farhat Murray MD [address] [place] [phone] PCP - General 09/09/19 Farhat Murray MD [address] [place] [address] 09/09/19
--- NOTE | 2024-08-08 10:12 | PC.NURSE ---
Pt. denies SOB or chest pain. Pt. states just my back. Back is not tender to palpation. Full ROM of RUE.
--- NOTE | 2024-08-08 11:00 | ED_ITS ---
HPI - General Adult General Chief complaint: Back Pain/Injury Stated complaint: back pain Time Seen by Provider: 08/08/24 09:25 History of Present Illness HPI narrative: 73-year-old female present to the emergency department for evaluation for right back and flank pain. Patient reports he does recently returned back from a trip to [place] and it was a right eye flight and she did attempt to sleep on the flight. Patient states she started having right-sided back pain after the flight. While patient was getting ready for work the next day she was walking up the stairs and did stumble she did not have a fall but did possibly strain her back. Patient states since then she has had worsening right back pain that is not controlled with [id number]-vfk-[id number] medications. Patient denies any associated numbness or weakness. Patient denies any hematuria. Related Data Home Medications ?Medication ?Instructions ?Recorded ?Confirmed ?Last Taken ?Type multivitamin 1 tablet PO DAILY 06/16/19 06/10/24 10/06/21 History magnesium hydroxide 400 mg (170 mg mg PO 06/10/24 06/10/24 Unknown History magnesium) chewable tablet vit C 250 mg-E 90 mg-zinc 40 1 tablet PO QAM AND QPM 06/10/24 06/10/24 Unknown History mg-copper 1 bb-pnqoxr-gyvzny chew tablet Allergies Allergy/AdvReac Type Severity Reaction Status Date / Time erythromycin base Allergy Severe Hives / Verified 08/08/24 08:30 Red Face tramadol Allergy Severe Hives Verified 08/08/24 08:30 tetracycline Allergy Intermediate Hives Verified 08/08/24 08:30 latex Allergy Mild rash Verified 08/08/24 08:30 Review of Systems Review of Systems: All systems reviewed & are unremarkable except as noted in HPI and below PMFSH Past Medical History Medical History (Updated 08/08/24 @ 12:30 by Aubrey Cook MD) BMI 22.0-22.9, adult Erosive osteoarthritis of hands, bilateral H/O: gout Arthritis Asthma Chronic obstructive pulmonary disease Moderate asthma without complication Surgical History Surgical History (Updated 06/10/24 @ 10:21 by ABDOULAYE Sanchez) Hx of colonoscopy Delivery by section History of carpal tunnel release History of parathyroid surgery H/O foot surgery Family History Family History (Updated 06/10/24 @ 10:23 by ABDOULAYE Sanchez) Mother Family history of osteoporosis Depression Family history of migraine headaches Family history of osteoarthritis Cerebrovascular accident Family history of cardiac disorder Patient's mother is Sibling Family history of osteoporosis Depression Family history of migraine headaches Family history of osteoarthritis Family history of heart disease in male family member before age 55, Onset Age: 34 Patient's brother is Family history of cardiovascular disease Acute myocardial infarction Family history of Parkinson's disease Family history of dementia Rheumatic fever Father Acute myocardial infarction Sibling Traumatic brain injury Seizure Other Family history of multiple sclerosis Social History Social History (Updated 06/10/24 @ 10:24 by ABDOULAYE Sanchez) Smoking packs per day: 0.10 Smoking cigarettes per day: 2.0 Years smoked: 30 Smoking pack-years: 3.00 Smoking status: Former smoker Tobacco type: cigarettes Second hand tobacco smoke exposure: Yes Alcohol intake: current Alcohol use details: social Substance use: never Substance use type: does not use Do You Feel Safe in your Home?: Yes Lack of Transportation: No Lack of Food: Never True Current Housing: I Have Housing Concerned About Future Housing: No Difficulty Paying Gas/Electric Bills: No Difficulty Paying for Meds: No Currently Unemployed: No Education: High School Diploma/GED Difficulty w/ Childcare or Family Care: No Living arrangements: with family Occupation/Education: occupation Additional occupation/education comments: [employer] Gender identity (if verbalized by the patient): Female Spiritual care concerns: No Exam Narrative: APPEARANCE: Well appearing, no pain, no distress, well-nourished. HEAD: normocephalic, atraumatic. EYES: PERRLA/EOMI, conjunctivae clear. NOSE: Normal no drainage EARS:TMS clear with good light reflex. THROAT: Pharynx clear, no exudate. NECK: Supple. No adenopathy, no masses. RESPIRATORY: Airway patent, respirations nonlabored. Clear to auscultation bilaterally, no rales, rhonchi, wheezing. CARDIOVASCULAR: Regular rate and rhythm without murmurs rubs or gallops. ABDOMINAL: Soft, nontender, nondistended, normal bowel sounds MUSCULOSKELETAL: Right paraspinal right flank pain NEURO: Alert. Cranial nerves II through XII intact. Course Vital Signs Vital signs: Vital Signs Temperature 97.8 F 08/08/24 08:31 Pulse Rate 88 02/09/25 08:31 Respiratory Rate 18 08/08/24 08:31 Blood Pressure 157/67 H 08/08/24 08:31 Pulse Oximetry 98 08/08/24 08:31 Oxygen Delivery Room Air 08/08/24 08:31 Temperature 97.8 F 08/08/24 08:31 Pulse Rate 72 08/08/24 11:20 Respiratory Rate 16 08/08/24 11:20 Blood Pressure 121/68 08/08/24 11:20 Pulse Oximetry 95 08/08/24 11:20 Oxygen Delivery Room Air 08/08/24 08:31 Medical Decision Making MDM Narrative Medical decision making narrative: 73-year-old female presented emergency department for evaluation for back pain. Patient did have reproducible right-sided paraspinal back and flank pain. Patient denies any chest pain or shortness of breath. Patient was not tachycardic or hypoxic. Patient denies any lower extremity pain or swelling. Low concern for PE. CT scan showed no acute abnormalities with the right flank and was concerning for left-sided pneumonia and x-ray did confirm this. Patient was provided medications for muscular back pain on the right and started on antibiotics for the suspected pneumonia. Patient family updated the results of the workup. All questions concerns were addressed. Patient was able to ambulate out of the emergency department with no distress. Differential Diagnosis Differential Diagnosis: Pulmonary embolism, pneumonia, flank pain, hematuria, kidney stone, colitis, diverticulitis Vital Signs Vital Signs: Vital Signs Temperature 97.8 F 08/08/24 08:31 Pulse Rate 88 08/08/24 08:31 Respiratory Rate 18 08/08/24 08:31 Blood Pressure 157/67 H 08/08/24 08:31 Pulse Oximetry 98 08/08/24 08:31 Oxygen Delivery Room Air 08/08/24 08:31 Temperature 97.8 F 08/08/24 08:31 Pulse Rate 72 08/08/24 11:20 Respiratory Rate 16 08/08/24 11:20 Blood Pressure 121/68 08/08/24 11:20 Pulse Oximetry 95 08/08/24 11:20 Oxygen Delivery Room Air 08/08/24 08:31 Lab Data Lab results reviewed: Yes I reviewed the patient's lab results. Labs: Lab Results 08/08/24 Range/Units 11:14 Urine Color Yellow (Yellow) Urine Appearance Cloudy H (Clear) Urine pH 7.5 (5.0-9.0) Ur Specific [place] 1.015 (1.001-1.035) Urine Protein Negative (Negative) mg/dL Urine Glucose (UA) Negative (Negative) mg/dL Urine Ketones Negative (Negative) mg/dL Ur Blood (Man) Negative (Negative) Urine Nitrate Negative (Negative) Urine Bilirubin Negative (Negative) Urine Urobilinogen 0.2 (<2.0) mg/dL Leukocyte Esterase Rfl Negative (Negative) KENDALL/UL Urine RBC 0-2 (0-2) /hpf Urine WBC 0-5 (0-3) /hpf Ur Squamous Epith Cells None seen (Few) /hpf Urine Bacteria None seen /hpf Urine Casts 0-2 Imaging Data Radiologist's impression: Impressions Abdomen/Pelvis CT 08/08/24 11:09 IMPRESSION: 1. Increasing consolidation in the posterior basilar left lower lobe which could represent atelectasis or pneumonia extending peripherally from the region of chronic bronchiectasis and scarring consistent with likely sequela prior infection. 2. 3 mm nonobstructing stone versus proteinaceous/hemorrhagic cyst at the lower pole the right kidney. Chest X-Ray 08/08/24 11:49 IMPRESSION: 1. New retrocardiac airspace opacity in the left lower lobe which could represent atelectasis and/or pneumonia. Discharge Plan Discharge Clinical Impression: Pain in right paraspinal region, Left lower lobe pneumonia Patient Disposition: Home, Self-Care Condition: Stable Instructions: Antibiotic Form, Flank Pain (ED), Back Pain (ED), Pneumonia (ED) Additional Instructions: Antibiotics as directed for the left lower lobe pneumonia. Ibuprofen for pain control. Flexeril for muscle spasm and Arvilla as needed for additional pain control for the right-sided back pain. Continue to have close follow-up with your primary care physician. If you have any worsening symptoms then please call or return to the emergency department. Patient Language: Martiniquais Prescriptions: New levofloxacin 500 mg tablet 500 mg PO DAILY 5 Days Qty: 5 0RF hydrocodone-acetaminophen 5-325 mg tablet 1 tablet PO Q12H PRN (Reason: pain) Qty: 14 0RF cyclobenzaprine 10 mg tablet 10 mg PO BID PRN (Reason: muscle spasm) Qty: 14 0RF No Action Symbicort 160-4.5 mcg/actuation HFA aerosol inhaler See Rx Instructions .ROUTE .COMPLEX Qty: 10.2 5RF Dose Instruction: INHALE 2 PUFFS BY MOUTH EVERY 12 HOURS USING THE SPACER. RINSE MOUTH WITH WATER AND SPIT AFTER USE Rx Instructions: INHALE 2 PUFFS BY MOUTH EVERY 12 HOURS USING THE SPACER. RINSE MOUTH WITH WATER AND SPIT AFTER USE montelukast [Singulair] 10 mg tablet 10 mg PO DAILY Qty: 90 1RF magnesium hydroxide 400 mg (170 mg magnesium) tablet,chewable PO vit C,O-Oo-bxfqs-lutein-zeaxan 250-90-40-1 mg tablet,chewable 1 tablet PO QAM AND QPM alendronate 70 mg tablet See Rx Instructions .ROUTE .COMPLEX Qty: 12 1RF Dose Instruction: TAKE 1 TABLET BY MOUTH ONCE WEEKLY Rx Instructions: TAKE 1 TABLET BY MOUTH ONCE WEEKLY multivitamin Tablet 1 tablet PO DAILY atorvastatin 10 mg tablet See Rx Instructions .ROUTE .COMPLEX Qty: 90 1RF Dose Instruction: TAKE 1 TABLET BY MOUTH EVERY DAY Rx Instructions: TAKE 1 TABLET BY MOUTH EVERY DAY albuterol sulfate [Ventolin HFA] 90 mcg/actuation HFA aerosol inhaler 1 - 2 inh inhalation Q4-6H PRN (Reason: shortness of breath or wheezing) Qty: 8.5 5RF Follow-up/Referrals: Vic Dodson APRN [Primary Care Provider] -
[2024-08-08 11:20] VITALS: BP 121/68; PULSE 72; RESP 16; O2SAT 95
[2024-08-08] MEDS: HYDROcodone/acetaminophen (*CRX) 5-325 MG TABLET 1 TAB PO (11:21)
[2024-08-08] MEDS: CYCLOBENZAPRINE HCL 10 MG TABLET PO (11:21)
[2024-08-08 11:26] LABS: Add Urine Microscopic? YES; Appearance Urine Cloudy (Clear); Bacteria Urine None Seen /hpf; Bilirubin Urine Negative (Negative); Blood Urine Negative (Negative); Color Urine Yellow (Yellow); Glucose Urine UA Negative (Negative); Ketones Urine Negative (Negative); Leukocyte Esterase Ur Negative LEU/UL (Negative); Nitrate Urine Negative (Negative); Non Pathogenic Casts 0-2; Protein Urine Negative (Negative); RBC Urine 0-2 /hpf (0-2); Specific Grav Ur 1.015 (1.001-1.035); Squamous Epithelial Cell Urine None Seen /hpf (Few); Urobilinogen Urine 0.2 mg/dL (<2.0); WBC Urine 0-5 /hpf (0-3); pH Urine 7.5 (5.0-9.0)
== END 2024-08-08 12:47 | disposition home or self-care (01) ==
PROVIDERS: Emergency Provider Emergency Medicine; PCP Nurse Practitioner
DX: J18.9 Pneumonia, unspecified organism (principal); M54.9 Dorsalgia, unspecified; J44.9 Chronic obstructive pulmonary disease, unspecified; M19.042 Primary osteoarthritis, left hand; M19.041 Primary osteoarthritis, right hand; M10.9 Gout, unspecified; Z87.891 Personal history of nicotine dependence; R93.421 Abnormal radiologic findings on diagnostic imaging of right kidney
CPT/HCPCS: 71046; 74176; 81001; 99284; A9270

== ENCOUNTER 2024-12-16 09:18 | Outpatient (CLI) | payer MEDICARE, SELFPAY ==
--- OUTSIDE RECORDS SUMMARY | 2024-12-16 09:45 | XMS_ITS | Encounter Summary ---
Author Organization [facility] Address [address] [place] [address] Care Team Providers Care Track Service Worker Name Role Phone Farhat Murray MD Primary Care Provider Farhat Murray MD Unavailable Encounter Details Date Type Department Care Team (Late st Contact Info) Description 09/10/2019 Lab Requisition [facility] [address] [place] [address] Tennille Segovia MD [address] [facility] [address] [place] [address] Social History Tobacco Use Types Packs/Day Years Used Date Smoking Tobacco: Never Assessed Comments Unknown Sex and Gender Information Value Date Recorded Sex Assigned at Not on file Legal Sex Female 4:39 PM CDT Gender Identity Not on file Sexual Orientation Not on file documented as of this encounter Plan of Treatment Not on file documented as of this encounter Procedures Procedure Name Priority Date/Time Associated Diagnosis Comments DERMATOPATHOLOGY Routine 09/09/2019 12:0 0 AM CDT documented in this encounter Results * DERMATOPATHOLOGY (09/09/2019 12:00 AM CDT) Case Report Dermatopathology Report Case: [id number] Authorizing Provider: Tennille Segovia MD Collected: 09/09/2019 12:00 AM Ordering Location: [facility] Received: 09/10/2019 07:18 AM Pathologist: Victorina Lao MD Specimen: Skin, left posterior neck 0 3:52 PM CDT DERMATOPATHOLOGY LABORATORY Final Diagnosis Specimen A. SKIN, left posterior neck: EPIDERMOID CYST (L72.0) (see microscopic description) 0 3:52 PM CDT DERMATOPATHOLOGY LABORATORY at 1552 CDT Clinical History R/O cyst. 0 3:52 PM [...] characteristic determined by the Dermatopathology Laboratory at [facility], directed by Dr. Ana Dia. These tests need not be, and therefore are not, approved by the [place] Food and Drug Administration. The tests are used for clinical purposes. Billing Codes Specimen Charges Stain Charges 36576 1 0 3:52 PM CDT DERMATOPATHOLOGY LABORATORY Embedded Images 0 3:52 PM CDT DERMATOPATHOLOGY LABORATORY Pathology/Cytolog y TISSUE SPECIMEN FROM SKIN / Unknown 09/09/2019 09/10/2019 7:18 AM CDT us Tennille Segovia MD LAB - PATHOLOGY/CYTOLOGY ORD ERABLES Final Result DERMATOPATHOLOGY LABORATORY [facility] - Department of Dermatology [facility] [place] [address], [facility] [phone] documented in this encounter Visit Diagnoses Not on filedocumented in this encounter Care Teams Track Service Worker Relationship Specialty Start Date End Date Farhat Murray MD [address] [place] [address] PCP - General 09/09/19 Farhat Murray MD [address] [place] [address] 09/09/19 documented as of this encounter
--- OUTSIDE RECORDS SUMMARY | 2024-12-16 09:45 | XMS_ITS | Clinical Summary ---
Author Organization [facility] Address [address] [place] [address] Care Team Providers Care Facility Mechanic Name Role Phone Farhat Murray MD Primary Care Provider [phone] Farhat Murray MD Unavailable [phone] Source Comments [facility],non-owned Affiliates and Associated Physician Practices is amultiple site organization consisting of ambulatory clinics and hospital sitesin [place], [place], [place] and [place]. This disclosure is being madepursuant to the Care Everywhere program and may not contain all information available regarding this patient. Last updated 18.[facility] Social History Tobacco Use Types Packs/Day Years [...] VACCINE (1 of 2) 2002 COVID-19 VACCINE (1 - 2023-2 5 season) 2024 DEPRESSION SCREENING 06/30/2024 INFLUENZA VACCINE (Season Ended) 2025 Respiratory Syncytial Virus (RSV) Vaccine Pt: or [...] to complete this topic MENINGOCOCCAL (Group B) VACC INE SHARED DECISION-MAKING Aged Out No longer eligibl e based on patient's age to complete this topic MENINGOCOCCAL GROUPS A/C/Y/W VACCINE Aged Out No longer eligible b ased on patient's age to complete this topic Insurance MEDICARE MEDICARE MEDICARE MEDICARE MEDICARE MEDICARE MEDICARE MEDICARE Care Teams Facility Mechanic Relationship Specialty Start Date End Date Farhat Murray MD [address] [place] [address] PCP - General 09/09/19 Farhat Murray MD [address] [place] [address] 09/09/19
--- OUTSIDE RECORDS SUMMARY | 2024-12-16 09:45 | XMS_ITS | CONTINUITY OF CARE DOCUMENT ---
Author Name dave acosta Address Unknown Organization [facility] Address [address] [place] [address] [address] [place] [address] Phone [phone] Care Team Providers Care Carpet Loom Fixer Name Role Phone dave acosta Unavailable Unavailable
[2024-12-16 10:50] LABS: Alanine Aminotransferase 20 U/L (6-35); Albumin Level 4.1 g/dL (3.5-5.1); Alkaline Phosphatase 69 U/L (38-126); Anion Gap 7 mmol/L (4-12); Aspartate Amino Transferase 28 U/L (14-36); Bilirubin,Total 0.8 mg/dL (0.2-1.3); Blood Urea Nitrogen 13 mg/dL (7-17); Calcium 8.9 mg/dL (8.4-10.2); Carbon Dioxide 26 mmol/L (22-30); Chloride 103 mmol/L (98-107); Cholesterol 214 mg/dL (0-200); Estimated Glomerular Filt Rate > 60; Glucose 106 mg/dL (65-110); HDL Direct 106 mg/dL; Potassium 3.6 mmol/L (3.4-5.0); Sodium 136 mmol/L (137-145); Total Protein 7.3 g/dL (6.3-8.2); Triglycerides 66 mg/dL (<150)
[2024-12-16 11:02] LABS: LDL Cholesterol Direct 73 mg/dL
[2024-12-16 11:16] LABS: Vitamin D 25 Hydroxy 22.1 ng/mL
== END 2024-12-16 09:19 | disposition home or self-care (01) ==
PROVIDERS: PCP Nurse Practitioner; Visit Provider Nurse Practitioner
DX: E55.9 Vitamin D deficiency, unspecified (principal); E78.5 Hyperlipidemia, unspecified
CPT/HCPCS: 36415; 80053; 80061; 82306